=== PATIENT | female | born 1985 | race African-American/Black ===

== ENCOUNTER 2018-05-07 10:01 | Emergency (ER) | payer OTHER, MEDICAID, SELFPAY ==
[2018-05-07 10:14] VITALS: BP 135/88; PULSE 114; RESP 20; TEMP 37.4; O2SAT 100
[2018-05-07 11:15] VITALS: BP 135/90; PULSE 116; RESP 18; TEMP 38.6; O2SAT 100
--- NOTE | 2018-05-07 16:22 | ED_ITS ---
HPI - Fever General Chief Complaint: Fever Stated Complaint: FEVER 102, NECK SWOLLEN, HURTS Time Seen by Provider: 05/07/18 10:20 Source: patient and family Mode of arrival: ambulatory Limitations: no limitations History of Present Illness HPI Narrative: 32-year-old female nonsmoker presents to the emergency department with a chief complaint sore throat and fever as high as 102 for the past day. She has trouble swallowing and denies many of the other symptoms associated with upper respiratory infection such as runny nose, ear pain or cough. MD complaint: fever Onset (ago): hour(s) Maximum Temperature: 102.6 F Temperature Source: oral Associated symptoms: sore throat Relieving factors: nothing Exacerbating factors: nothing Treatments prior to arrival fever: none Related Data Previous Rx's Medication Instructions Recorded amoxicillin-pot clavulanate 1 tab PO BID #20 tab 05/07/18 [Augmentin] Allergies Allergy/AdvReac Type Severity Reaction Status Date / Time No Known Drug Allergies Allergy Verified 05/07/18 10:14 Review of Systems Review of Systems All systems reviewed & are unremarkable except as noted in HPI and below Constitutional Denies chills, Denies fever(s), Denies lethargy and Denies weakness Eyes Denies change in vision, Denies eye discharge, Denies irritation and Denies loss of vision ENT Ears, Nose, Mouth, and Throat: Denies change in voice, Denies neck pain and Reports sore throat Cardiovascular Denies chest pain, Denies irregular heart rhythm, Denies lightheadedness, Denies palpitations, Denies dyspnea, Denies dyspnea on exertion and Denies orthopnea Respiratory Denies cough, Denies dyspnea, Denies dyspnea on exertion and Denies wheezing Gastrointestinal Gastrointestinal: Denies abdominal pain, Denies change in bowel habits, Denies diarrhea, Denies nausea and Denies vomiting Genitourinary Denies hematuria, Denies flank pain, Denies urinary incontinence and Denies urinary urgency Musculoskeletal Denies neck pain Integumentary/Breasts Denies pruritus, Denies erythema, Denies rash and Denies wounds Neurologic Denies confusion, Denies loss of vision and Denies weakness Psychiatric Denies anxiety, Denies confusion, Denies depression, Denies homicidal ideation and Denies suicidal ideation Endocrine Denies palpitations Hematologic/Lymphatic Denies easy bruising Allergic/Immunologic Denies wheezing [facility] Medical History Knee pain, right (Chronic Unknown) Social History Smoking Status: Never smoker Exam Narrative Exam Narrative: GEN: AOx3 and in mild distress EYES: Pupils are equal, round, and reactive to light and accommodation. Extraoccular muscles are intact bilaterally. There is no subconjunctival hemorrhage or exudate. CHEST: Lungs are clear to auscultation bilaterally and free of wheezes, rales, or rhonchi. Heart rate is regular rhythm, there are no murmurs, clicks, rubs, or gallops. There is no chest wall tenderness. ABD: Abdomen is soft and nontender. There is no guarding or rebound. Bowel sounds are normal in all 4 quadrants. There is no mass or organomegaly. ENT: Left tonsillar swelling, erythema and exudate. Tender anterior lymphadenopathy EXT: Full painless ROM of all extremities with no loss of sensation or strength. SKIN: Warm, pink, and dry. No erythema or rash Initial Vital Signs Initial Vital Signs: Vital Signs Temperature 99.3 F 05/07/18 10:14 Pulse Rate 114 H 05/07/18 10:14 Respiratory Rate 20 05/07/18 10:14 Blood Pressure 135/88 05/07/18 10:14 Pulse Oximetry 100 05/07/18 10:14 Course Vital Signs - 8 hr 05/07/18 10:14 05/07/18 11:15 Temperature 99.3 F 101.4 F H Pulse Rate 114 H 116 H Respiratory Rate 20 18 Blood Pressure 135/88 Blood Pressure [Left Arm] 135/90 Pulse Oximetry 100 100 MDM - Fever Lab Data Point of Care Testing Rapid Strep A Negative Discharge Plan Departure Patient Disposition: Home Clinical Impression: Acute streptococcal pharyngitis Discharge Date/Time: 05/07/18 11:21 Interventions: ED Discharge Assessment Last Done: 05/07/18 11:20 Instructions: DI for Strep Throat Activity Restrictions/Additional Instructions: *You have been diagnosed with [ acute streptococcal pharyngitis ] *What to do: *Take medications as directed: Her antibiotics of an electronically transmitted to [facility] in [place] at your request *Follow up with your primary care provider in 2-3 days, call for an appointment. Let them know you were seen in the Emergency Department and that we ask that you be seen in follow up *Return to ER if you should have any new, worsening or concerning symptoms Prescriptions: New amoxicillin-pot clavulanate [Augmentin] 875-125 mg tablet 1 tab PO BID Qty: 20 RF: 0 Stand Alone Forms: Work/School Restrictions
== END 2018-05-07 11:21 | disposition home or self-care (01) ==
PROVIDERS: Emergency Provider Emergency Medicine
DX: J02.0 Streptococcal pharyngitis (principal)
CPT/HCPCS: 87880; 99282; 99283

== ENCOUNTER 2018-07-08 16:00 | Outpatient (RCR) | payer OTHER, MEDICAID, SELFPAY ==
--- NOTE | 2018-03-16 15:15 | PT.OTN ---
Current Diagnoses Unspecified internal derangement of right knee (03/16/18) Effusion, right knee (03/16/18) Pain in right knee (03/16/18) Stiffness of right knee, not elsewhere classified (03/16/18) Weakness (03/16/18) Physical Therapy Treatment Note PT-OP-A Visit Information Start: 02/26/18 09:27 Freq: Status: Active Protocol: Document 03/16/18 15:15 DCW (Rec: 03/17/18 12:37 DCW [id number]) Out-Patient Physical Therapy Visit Information Visit Information Visit Type Progress Note Visit Start Time 15:15 Visit Stop Time 15:55 Total Visit Minutes 40 Visit Number 11 Number of MEDIA ARTS PROFESSOR Visits 0 Evaluation Information Evaluation Date 08/11/17 PT-OP-B Current Condition Start: 02/26/18 09:27 Freq: Status: Active Protocol: Document 03/16/18 15:15 DCW (Rec: 03/17/18 12:37 DCW [id number]) Current Condition History of Current Condition Onset Date one year Current Complaints Knee pain, instability, loss of ROM, weakness History of Current Condition Pt is a 31 year old female presenting with a one year history of right knee pain. Pt was previously treated at this clinic earlier in the year, and was on hold while she had other testing/ procedures performed. last month, she received an injection in her knee, and was told to return to therapy in one month for ROM and strengthening. Pt reports her knee feels alright sometimes, and notes she has been walking better since her injection, however she continues to have difficulty bending down, she is unable to run with her children, and experiences stiffness and swelling occasionally when on her feet at her job as a [employer]. Pt notes that they initially believed she had a meniscal tear, and plan to do surgery, however after an x-ray revealed substantial degeneration of the joint space, they wanted to attempt injection and therapy prior to surgery. 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 trail again. Prior Functional Status Baseline Function- ADL's Independent Baseline Function- Mobility Independent Current Functional Impairments (Reported) Functional Limitations- Work/School Increased stiffness and edema with being on her feet for extended periods at work, but nothing stops me from actually going to work. PT-OP-C Subjective Start: 02/26/18 09:27 Freq: Status: Active Protocol: Document 03/16/18 15:15 DCW (Rec: 03/17/18 12:37 DCW [id number]) OP-PT Subjective Patient Comments Patient Comments It feels alright sometimes since the injection Patient Reported Progress Improving PT-OP-F Manual Assessment Start: 02/26/18 09:27 Freq: Status: Active Protocol: Document 03/16/18 15:15 DCW (Rec: 03/17/18 12:37 DCW [id number]) Manual Assessments Soft Tissue Assessment Soft Tissue Mobility Assessment Edema around right patella tendon, tenderness 2/4 - Pain with wincing along lateral joint line Joint Mobility Assessment Joint Mobility Assessment Mild laxity with right anterior drawer, significant increased mobility of patella in all directions, moderate-> severe crepitus at patellofemoral joint with any knee extension PT-OP-K Range of Motion Start: 02/26/18 09:27 Freq: Status: Active Protocol: Document 03/16/18 15:15 DCW (Rec: 03/17/18 12:37 DCW [id number]) Knee Goniometric Range of Motion Knee Measured in Degrees Right Knee ROM WFL No Patient Position Supine Flexion Active (degrees) 116 Flexion Passive (degrees) 0 Left Knee ROM WFL Yes Patient Position Supine Flexion Active (degrees) 135 Flexion Passive (degrees) 0 Knee ROM Limitations Knee ROM Limitations Soft Tissue Tightness Bony Restriction Pain PT-OP-L Special Tests Start: 02/26/18 09:27 Freq: Status: Active Protocol: Document 03/16/18 15:15 DCW (Rec: 03/17/18 12:37 DCW [id number]) Special Tests Knee Special Tests Posterior Draw Test Results Negative Patellar Grind Test Test Results Positive Patella Tap Test Results Positive Murphy Test Test Results 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 Results Patella pain in all positions Apprehension Test Test Results Positive Apley's Compression Test Results Positive Anterior Draw Test Results Mild laxity PT-OP-M Strength Start: 02/26/18 09:27 Freq: Status: Active Protocol: Document 03/16/18 15:15 DCW (Rec: 03/17/18 12:37 [facility] [id number]) Knee Strength Knee Manual Muscle Testing Right Flexion (S2) 4+ Good+ Extension (L3) 4- Good- Comments Pain and crepitus with resisted right extension Left Flexion (S2) 5 Normal Extension (L3) 5 Normal PT-OP-Q Treatments Start: 02/26/18 09:27 Freq: Status: Active Protocol: Document 03/16/18 15:15 DCW (Rec: 03/17/18 12:37 [facility] [id number]) Manual Therapy Treatment Taping 1 Body Location Right knee Treatment Focus Stability/Support Type of Tape Kinesio Tape Skin Inspection WNL Comments Y strip lateral->medial across patella, Y-strip along vastus medialis origin->insertion PT-OP-T Assessment and Plan Start: 02/26/18 09:27 Freq: Status: Active Protocol: Document 03/16/18 15:15 DCW (Rec: 03/17/18 12:37 [facility] [id number]) Physical Therapy Assessment Rehab Potential Rehabilitation Potential Fair Evaluation Complexity Number of Personal Factors/Comorbidities 1-2 Number of Body Systems Impaired 3 Clinical Presentation at Evaluation Evolving Impairments Impairments Activity Tolerance Functional Activities Functional Mobility Pain ROM Soft Tissue Mobility Strength Other Concerns Barriers to Rehabilitation Chronicity of condition, likely upcoming surgical intervention Goals Four Impairment Weakness Short Term Goal (STG) Right knee extension to 4+/5 STG Duration 04/15/18 Three Impairment ROM Short Term Goal (STG) Right knee flexion to 125? STG Duration 04/15/18 Detention Goal (LTG) Right knee flexion equal to left knee flexion Two Impairment Pt unable to run with children on [employer] House Admin Goal (LTG) Pt to run/walk length of [employer] with her children with no increased knee pain LTG Duration 05/16/18 One Impairment Pt does not have an appropriate Home exercise program Short Term Goal (STG) Pt to be independent and consistent performing appropriate HEP STG Duration 04/15/18 Assessment Summary Assessment Pt presents with a right knee assessment suggestive of a possible meniscus tear, along with mild anterior joint laxity and significant laxity of the patella. Pt should benefit from skilled therapy focusing on quad strengthening and closed chain exercises, joint stability, ROM, edema control, and pain control. Physical Therapy Plan Frequency and Duration Frequency of Treatment 2x/Week Duration of Treatment 12 weeks Plan of Care Start Date 03/16/18 Plan of Care End Date 06/08/18 Therapeutic Interventions Therapeutic Interventions Aquatic Therapy Balance Training Home Exercise Program Manual Therapy Neuromuscular Re-education Patient/Caregiver Education Self-Care/Home Management Soft Tissue Mobilization Taping Therapeutic Activities Therapeutic Exercises Modalities Cold Pack/Ice Massage Electric Stimulation Hot Packs Ultrasound Next Visit Focus/Plan Next Note Type Treatment Note Next Visit Plan LE strengthening, joint stability, ROM
--- NOTE | 2018-03-16 15:15 | PT.OPPOC ---
Current Diagnoses Unspecified internal derangement of right knee (03/16/18) Effusion, right knee (03/16/18) Pain in right knee (03/16/18) Stiffness of right knee, not elsewhere classified (03/16/18) Weakness (03/16/18) Provider Visit Care Team Role Provider Type Vu Hernández MD Attending Provider Physician Family Provider Primary Care Provider Specialty: Orthopedics Address: [address] [place] [address], [place], [address] Email: [email or web address] Plan Of Care PT-OP-T Assessment and Plan Start: 02/26/18 09:27 Freq: Status: Active Protocol: Document 03/16/18 15:15 DCW (Rec: 03/17/18 12:37 DCW [id number]) Physical Therapy Assessment Rehab Potential Rehabilitation Potential Fair Evaluation Complexity Number of Personal Factors/Comorbidities 1-2 Number of Body Systems Impaired 3 Clinical Presentation at Evaluation Evolving Impairments Impairments Activity Tolerance Functional Activities Functional Mobility Pain ROM Soft Tissue Mobility Strength Other Concerns Barriers to Rehabilitation Chronicity of condition, likely upcoming surgical intervention Goals Four Impairment Weakness Short Term Goal (STG) Right knee extension to 4+/5 STG Duration 04/15/18 Three Impairment ROM Short Term Goal (STG) Right knee flexion to 125? STG Duration 04/15/18 Placement Assistant Goal (LTG) Right knee flexion equal to left knee flexion Two Impairment Pt unable to run with children on [employer] Longterm Goal (LTG) Pt to run/walk length of [employer] trail with her children with no increased knee pain LTG Duration 05/16/18 One Impairment Pt does not have an appropriate Home exericse program Short Term Goal (STG) Pt to be independent and consistent performing appropriate HEP STG Duration 04/15/18 Assessment Summary Assessment Pt presents with a right knee assessment suggestive of a possible meniscus tear, along with mild anterior joint laxity and significant laxity of the patella. Pt should benefit from skilled therapy focusing on quad strengthening and closed chain exercises, joint stability, ROM, edema control, and pain control. Physical Therapy Plan Frequency and Duration Frequency of Treatment 2x/Week Duration of Treatment 12 weeks Plan of Care Start Date 03/16/18 Plan of Care End Date 06/08/18 Therapeutic Interventions Therapeutic Interventions Aquatic Therapy Balance Training Home Exercise Program Manual Therapy Neuromuscular Re-education Patient/Caregiver Education Self-Care/Home Management Soft Tissue Mobilization Taping Therapeutic Activities Therapeutic Exercises Modalities Cold Pack/Ice Massage Electric Stimulation Hot Packs Ultrasound Next Visit Focus/Plan Next Note Type Treatment Note Next Visit Plan LE strengthening, joint stability, ROM Plan of Care Dates Plan of Care Start Date 03/16/18 Plan of Care End Date 06/08/18 Please Sign and Return: I have reviewed this Plan of Care and certify that the skilled therapy services above are required to meet the patient?s needs. Physician Signature Date Printed Name and Credentials Clinical Instructor Signature Printed Name and Credentials
--- NOTE | 2018-03-25 16:45 | PT.OTN ---
Current Diagnoses Unspecified internal derangement of right knee (03/25/18) Physical Therapy Treatment Note PT-OP-A Visit Information Start: 02/26/18 09:27 Freq: Status: Active Protocol: Document 03/25/18 16:00 DCW (Rec: 03/25/18 16:45 DCW [id number]) Out-Patient Physical Therapy Visit Information Visit Information Visit Type Treatment Note Visit Start Time 16:00 Visit Stop Time 16:55 Total Visit Minutes 55 Visit Number 12 Number of INSPECTOR GOVERNMENT PROPERTY Visits 0 Evaluation Information Evaluation Date 08/11/17 PT-OP-B Current Condition Start: 02/26/18 09:27 Freq: Status: Active Protocol: Document 03/16/18 15:15 DCW (Rec: 03/17/18 12:37 DCW [id number]) Current Condition History of Current Condition Onset Date one year Current Complaints Knee pain, instability, loss of ROM, weakness History of Current Condition Pt is a 31 year old female presenting with a one year history of right knee pain. Pt was previously treated at this clinic earlier in the year, and was on hold while she had other testing/ procedures performed. last month, she received an injection in her knee, and was told to return to therapy in one month for ROM and strengthening. Pt reports her knee feels alright sometimes, and notes she has been walking better since her injection, however she continues to have difficulty bending down, she is unable to run with her children, and experiences stiffness and swelling occasionally when on her feet at her job as a [employer]. Pt notes that they initially believed she had a meniscal tear, and plan to do surgery, however after an x-ray revealed substantial degeneration of the joint space, they wanted to attempt injection and therapy prior to surgery. 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 Prior Functional Status Baseline Function- ADL's Independent Baseline Function- Mobility Independent Current Functional Impairments (Reported) Functional Limitations- Work/School Increased stiffness and edema with being on her feet for extended periods at work, but nothing stops me from actually going to work. PT-OP-C Subjective Start: 02/26/18 09:27 Freq: Status: Active Protocol: Document 03/25/18 16:00 DCW (Rec: 03/25/18 16:45 DCW [id number]) OP-PT Subjective Patient Comments Patient Comments Pt reports that she still not seeing a whole lot of improvement since the injection. PT-OP-F Manual Assessment Start: 02/26/18 09:27 Freq: Status: Active Protocol: Document 03/16/18 15:15 DCW (Rec: 03/17/18 12:37 DCW [id number]) Manual Assessments Soft Tissue Assessment Soft Tissue Mobility Assessment Edema around right patella tendon, tenderness 2/4 - Pain with wincing along lateral joint line Joint Mobility Assessment Joint Mobility Assessment Mild laxity with right anterior drawer, significant increased mobility of patella in all directions, moderate-> severe crepitus at patellofemoral joint with any knee extension PT-OP-K Range of Motion Start: 02/26/18 09:27 Freq: Status: Active Protocol: Document 03/16/18 15:15 DCW (Rec: 03/17/18 12:37 DCW [id number]) Knee Goniometric Range of Motion Knee Measured in Degrees Right Knee ROM WFL No Patient Position Supine Flexion Active (degrees) 116 Flexion Passive (degrees) 0 Left Knee ROM WFL Yes Patient Position Supine Flexion Active (degrees) 135 Flexion Passive (degrees) 0 Knee ROM Limitations Knee ROM Limitations Soft Tissue Tightness Bony Restriction Pain PT-OP-L Special Tests Start: 02/26/18 09:27 Freq: Status: Active Protocol: Document 03/16/18 15:15 DCW (Rec: 03/17/18 12:37 DCW [id number]) Special Tests Knee Special Tests Posterior Draw Test Results Negative Patellar Grind Test Test Results Positive Patella Tap Test Results Positive Murphy Test Test Results 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 Results Patella pain in all positions Apprehension Test Test Results Positive Apley's Compression Test Results Positive Anterior Draw Test Results Mild laxity PT-OP-M Strength Start: 02/26/18 09:27 Freq: Status: Active Protocol: Document 03/16/18 15:15 DCW (Rec: 03/17/18 12:37 DCW [id number]) Knee Strength Knee Manual Muscle Testing Right Flexion (S2) 4+ Good+ Extension (L3) 4- Good- Comments Pain and crepitus with resisted right extension Left Flexion (S2) 5 Normal Extension (L3) 5 Normal PT-OP-Q Treatments Start: 02/26/18 09:27 Freq: Status: Active Protocol: Document 03/25/18 16:00 DCW (Rec: 03/25/18 16:45 DCW [id number]) Cardio Equipment Recumbent Bicycle Duration (Minutes) 6 Resistance 5 Seat Position 7 Gym Equipment Shuttle Recovery Unilateral Squats Resistance 62# Shuttle Recovery Platform Stable Bilateral Squats Details Adductor ball squeeze Resistance 100# Shuttle Recovery Platform Stable Shuttle Balance Red Details Wide RICKI, Staggered Stance, Lateral weight shift Manual Therapy Treatment Joint Mobilizations 1 Joint Tibiofemoral joint mobilization Direction P->A Grade III Body Position Hooklying Taping 1 Body Location Right knee Treatment Focus Stability/Support Type of Tape Kinesio Tape Skin Inspection WNL Comments Y strip lateral->medial across patella, Y-strip along vastus medialis origin->insertion PT-OP-R Modalities Start: 02/26/18 09:27 Freq: Status: Active Protocol: Document 03/25/18 16:00 DCW (Rec: 03/25/18 16:45 DCW [id number]) Electric Stimulation Electric Stimulation Interferential Current (IFC) Body Location Right knee Duration (Minutes) 15 Patient Position Hooklying Combined With Heat/Cold Cold Pack PT-OP-T Assessment and Plan Start: 02/26/18 09:27 Freq: Status: Active Protocol: Document 03/25/18 16:00 DCW (Rec: 03/25/18 16:45 DCW [id number]) Physical Therapy Assessment Impairments Impairments Activity Tolerance Functional Activities Functional Mobility Pain ROM Soft Tissue Mobility Strength Goals Four Impairment Weakness Short Term Goal (STG) Right knee extension to 4+/5 STG Duration 04/15/18 Three Impairment ROM Short Term Goal (STG) Right knee flexion to 125? STG Duration 04/15/18 Mcfp Goal (LTG) Right knee flexion equal to left knee flexion Two Impairment Pt unable [place] [employer] [employer] Goal (LTG) Pt to run/walk [place] with her children with no increased knee pain LTG Duration 05/16/18 One Impairment Pt does not have an appropriate Home exericse program Short Term Goal (STG) Pt to be independent and consistent performing appropriate HEP STG Duration 04/15/18 Assessment Summary Assessment Pt noted improvement with use of K-tape, will assess effectiveness of E-stim next week. Continue closed-chain strengthening and joint mobility. Physical Therapy Plan Frequency and Duration Frequency of Treatment 2x/Week Duration of Treatment 12 weeks Plan of Care Start Date 03/16/18 Plan of Care End Date 06/08/18 Therapeutic Interventions Therapeutic Interventions Aquatic Therapy Balance Training Home Exercise Program Manual Therapy Neuromuscular Re-education Patient/Caregiver Education Self-Care/Home Management Soft Tissue Mobilization Taping Therapeutic Activities Therapeutic Exercises Modalities Cold Pack/Ice Massage Electric Stimulation Hot Packs Ultrasound Next Visit Focus/Plan Next Note Type Treatment Note Next Visit Plan LE strengthening, joint stability, ROM
--- NOTE | 2018-04-01 15:58 | PT.OTN ---
Current Diagnoses Unspecified internal derangement of right knee (04/01/18) Physical Therapy Treatment Note PT-OP-A Visit Information Start: 02/26/18 09:27 Freq: Status: Active Protocol: Document 04/01/18 15:15 DCW (Rec: 04/01/18 15:58 DCW [id number]) Out-Patient Physical Therapy Visit Information Visit Information Visit Type Treatment Note Visit Start Time 15:15 Visit Stop Time 16:10 Total Visit Minutes 55 Visit Number 13 Number of CANARY BREEDER Visits 0 Evaluation Information Evaluation Date 08/11/17 PT-OP-B Current Condition Start: 02/26/18 09:27 Freq: Status: Active Protocol: Document 03/16/18 15:15 DCW (Rec: 03/17/18 12:37 DCW [id number]) Current Condition History of Current Condition Onset Date one year Current Complaints Knee pain, instability, loss of ROM, weakness History of Current Condition Pt is a 31 year old female presenting with a one year history of right knee pain. Pt was previously treated at this clinic earlier in the year, and was on hold while she had other testing/ procedures performed. last month, she received an injection in her knee, and was told to return to therapy in one month for ROM and strengthening. 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 Pt notes that they initially believed she had a meniscal tear, and plan to do surgery, however after an x-ray revealed substantial degeneration of the joint space, they wanted to attempt injection and therapy prior to surgery. 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 Prior Functional Status Baseline Function- ADL's Independent Baseline Function- Mobility Independent Current Functional Impairments (Reported) Functional Limitations- Work/School Increased stiffness and edema with being on her feet for extended periods at work, but nothing stops me from actually going to work. PT-OP-C Subjective Start: 02/26/18 09:27 Freq: Status: Active Protocol: Document 04/01/18 15:15 DCW (Rec: 04/01/18 15:58 DCW [id number]) OP-PT Subjective Patient Comments Patient Comments Pt reports no notable changes, admits she attempted to wear her brace yesterday, but it actually made walking more difficult. PT-OP-F Manual Assessment Start: 02/26/18 09:27 Freq: Status: Active Protocol: Document 03/16/18 15:15 DCW (Rec: 03/17/18 12:37 DCW [id number]) Manual Assessments Soft Tissue Assessment Soft Tissue Mobility Assessment Edema around right patella tendon, tenderness 2/4 - Pain with wincing along lateral joint line Joint Mobility Assessment Joint Mobility Assessment Mild laxity with right anterior drawer, significant increased mobility of patella in all directions, moderate-> severe crepitus at patellofemoral joint with any knee extension PT-OP-K Range of Motion Start: 02/26/18 09:27 Freq: Status: Active Protocol: Document 03/16/18 15:15 DCW (Rec: 03/17/18 12:37 DCW [id number]) Knee Goniometric Range of Motion Knee Measured in Degrees Right Knee ROM WFL No Patient Position Supine Flexion Active (degrees) 116 Flexion Passive (degrees) 0 Left Knee ROM WFL Yes Patient Position Supine Flexion Active (degrees) 135 Flexion Passive (degrees) 0 Knee ROM Limitations Knee ROM Limitations Soft Tissue Tightness Bony Restriction Pain PT-OP-L Special Tests Start: 02/26/18 09:27 Freq: Status: Active Protocol: Document 03/16/18 15:15 DCW (Rec: 03/17/18 12:37 DCW [id number]) Special Tests Knee Special Tests Posterior Draw Test Results Negative Patellar Grind Test Test Results Positive Patella Tap Test Results Positive Murphy Test Test Results 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 Results Patella pain in all positions Apprehension Test Test Results Positive Apley's Compression Test Results Positive Anterior Draw Test Results Mild laxity PT-OP-M Strength Start: 02/26/18 09:27 Freq: Status: Active Protocol: Document 03/16/18 15:15 DCW (Rec: 03/17/18 12:37 DCW [id number]) Knee Strength Knee Manual Muscle Testing Right Flexion (S2) 4+ Good+ Extension (L3) 4- Good- Comments Pain and crepitus with resisted right extension Left Flexion (S2) 5 Normal Extension (L3) 5 Normal PT-OP-Q Treatments Start: 02/26/18 09:27 Freq: Status: Active Protocol: Document 04/01/18 15:15 DCW (Rec: 04/01/18 15:58 DCW [id number]) Cardio Equipment Recumbent Bicycle Duration (Minutes) 6 Resistance 5 Seat Position 7 Gym Equipment Shuttle Recovery Plyometric Hopping Resistance 50# -> 25# Unilateral Squats Resistance 62# Shuttle Recovery Platform Stable Bilateral Squats Details Adductor ball squeeze Resistance 100# Shuttle Recovery Platform Stable Shuttle Balance Red Details Wide RICKI, Staggered Stance, Lateral weight shift Manual Therapy Treatment Joint Mobilizations 2 Joint Patellofemoral joint mobilization Direction Superior<->Inferior Grade III Body Position Supine 1 Joint Tibiofemoral joint mobilization Direction P->A Grade III Body Position Hooklying Taping 1 Body Location Right knee Treatment Focus Stability/Support Type of Tape Kinesio Tape Skin Inspection WNL Comments Y strip lateral->medial across patella, Y-strip along vastus medialis origin->insertion PT-OP-R Modalities Start: 02/26/18 09:27 Freq: Status: Active Protocol: Document 04/01/18 15:15 DCW (Rec: 04/01/18 15:58 DCW [id number]) Electric Stimulation Electric Stimulation Interferential Current (IFC) Body Location Right knee Duration (Minutes) 15 Patient Position Hooklying Combined With Heat/Cold Cold Pack PT-OP-T Assessment and Plan Start: 02/26/18 09:27 Freq: Status: Active Protocol: Document 04/01/18 15:15 DCW (Rec: 04/01/18 15:58 DCW [id number]) Physical Therapy Assessment Impairments Impairments Activity Tolerance Functional Activities Functional Mobility Pain ROM Soft Tissue Mobility Strength Goals Four Impairment Weakness Short Term Goal (STG) Right knee extension to 4+/5 STG Duration 04/15/18 Three Impairment ROM Short Term Goal (STG) Right knee flexion to 125? STG Duration 04/15/18 Shelter Goal (LTG) Right knee flexion equal to left knee flexion Two Impairment Pt unable to run with children on [place] Senior Lead Project Manager Goal (LTG) Pt to run/walk [place] with [place] with no increased knee pain LTG Duration 05/16/18 One Impairment Pt does not have an appropriate Home exericse program Short Term Goal (STG) Pt to be independent and consistent performing appropriate HEP STG Duration 04/15/18 Assessment Summary Assessment Pt does not yet display any signs of improvement, focus more on manual treatment to determine if increased mobility decreases her pain. Physical Therapy Plan Frequency and Duration Frequency of Treatment 2x/Week Duration of Treatment 12 weeks Plan of Care Start Date 03/16/18 Plan of Care End Date 06/08/18 Therapeutic Interventions Therapeutic Interventions Aquatic Therapy Balance Training Home Exercise Program Manual Therapy Neuromuscular Re-education Patient/Caregiver Education Self-Care/Home Management Soft Tissue Mobilization Taping Therapeutic Activities Therapeutic Exercises Modalities Cold Pack/Ice Massage Electric Stimulation Hot Packs Ultrasound Next Visit Focus/Plan Next Note Type Treatment Note Next Visit Plan LE strengthening, joint stability, ROM
--- NOTE | 2018-04-03 11:25 | PT.OTN ---
Current Diagnoses Unspecified internal derangement of right knee (04/03/18) Physical Therapy Treatment Note PT-OP-A Visit Information Start: 02/26/18 09:27 Freq: Status: Active Protocol: Document 04/03/18 10:40 LRN (Rec: 04/03/18 11:21 LRN [id number]) Out-Patient Physical Therapy Visit Information Visit Information Visit Type Treatment Note Visit Start Time 10:40 Visit Stop Time 11:35 Total Visit Minutes 55 Visit Number 14 Number of STEAM PLANT RECORDS CLERK Visits 0 Evaluation Information Evaluation Date 08/11/17 PT-OP-B Current Condition Start: 02/26/18 09:27 Freq: Status: Active Protocol: Document 03/16/18 15:15 DCW (Rec: 03/17/18 12:37 DCW [id number]) Current Condition History of Current Condition Onset Date one year Current Complaints Knee pain, instability, loss of ROM, weakness History of Current Condition Pt is a 31 year old female presenting with a one year history of right knee pain. Pt was previously treated at this clinic earlier in the year, and was on hold while she had other testing/ procedures performed. last month, she received an injection in her knee, and was told to return to therapy in one month for ROM and strengthening. 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 Pt notes that they initially believed she had a meniscal tear, and plan to do surgery, however after an x-ray revealed substantial degeneration of the joint space, they wanted to attempt injection and therapy prior to surgery. 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 Prior Functional Status Baseline Function- ADL's Independent Baseline Function- Mobility Independent Current Functional Impairments (Reported) Functional Limitations- Work/School Increased stiffness and edema with being on her feet for extended periods at work, but nothing stops me from actually going to work. PT-OP-C Subjective Start: 02/26/18 09:27 Freq: Status: Active Protocol: Document 04/03/18 10:40 LRN (Rec: 04/03/18 11:21 LRN [id number]) OP-PT Subjective Patient Comments Patient Comments No change except walking better after injection. When bending the knee it hurts really bad PT-OP-F Manual Assessment Start: 02/26/18 09:27 Freq: Status: Active Protocol: Document 03/16/18 15:15 DCW (Rec: 03/17/18 12:37 DCW [id number]) Manual Assessments Soft Tissue Assessment Soft Tissue Mobility Assessment Edema around right patella tendon, tenderness 2/4 - Pain with wincing along lateral joint line Joint Mobility Assessment Joint Mobility Assessment Mild laxity with right anterior drawer, significant increased mobility of patella in all directions, moderate-> severe crepitus at patellofemoral joint with any knee extension PT-OP-K Range of Motion Start: 02/26/18 09:27 Freq: Status: Active Protocol: Document 03/16/18 15:15 DCW (Rec: 03/17/18 12:37 DCW [id number]) Knee Goniometric Range of Motion Knee Measured in Degrees Right Knee ROM WFL No Patient Position Supine Flexion Active (degrees) 116 Flexion Passive (degrees) 0 Left Knee ROM WFL Yes Patient Position Supine Flexion Active (degrees) 135 Flexion Passive (degrees) 0 Knee ROM Limitations Knee ROM Limitations Soft Tissue Tightness Bony Restriction Pain PT-OP-L Special Tests Start: 02/26/18 09:27 Freq: Status: Active Protocol: Document 03/16/18 15:15 DCW (Rec: 03/17/18 12:37 DCW [id number]) Special Tests Knee Special Tests Posterior Draw Test Results Negative Patellar Grind Test Test Results Positive Patella Tap Test Results Positive Murphy Test Test Results 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 Results Patella pain in all positions Apprehension Test Test Results Positive Apley's Compression Test Results Positive Anterior Draw Test Results Mild laxity PT-OP-M Strength Start: 02/26/18 09:27 Freq: Status: Active Protocol: Document 03/16/18 15:15 DCW (Rec: 03/17/18 12:37 DCW [id number]) Knee Strength Knee Manual Muscle Testing Right Flexion (S2) 4+ Good+ Extension (L3) 4- Good- Comments Pain and crepitus with resisted right extension Left Flexion (S2) 5 Normal Extension (L3) 5 Normal PT-OP-Q Treatments Start: 02/26/18 09:27 Freq: Status: Active Protocol: Document 04/03/18 10:40 LRN (Rec: 04/03/18 11:21 LRN [id number]) Cardio Equipment Bicycle (Upright) Duration (Minutes) 6 Resistance 3 Seat Position 7 Gym Equipment Shuttle Recovery Plyometric Hopping Resistance 50# -> 25# Unilateral Squats Details Shallow squat Resistance 62# Shuttle Recovery Platform Stable Bilateral Squats Details Adductor ball squeeze, shallow squat Resistance 100# Shuttle Recovery Platform Stable Manual Therapy Treatment Joint Mobilizations 2 Joint Patellofemoral joint mobilization Direction Superior<->Inferior Grade III Body Position Supine Taping 1 Body Location Right knee Treatment Focus Stability/Support Type of Tape Kinesio Tape Skin Inspection WNL Comments Y strip lateral->medial across patella, Y-strip along vastus medialis origin->insertion PT-OP-R Modalities Start: 02/26/18 09:27 Freq: Status: Active Protocol: Document 04/03/18 10:40 LRN (Rec: 04/03/18 11:21 LRN [id number]) Electric Stimulation Electric Stimulation Interferential Current (IFC) Body Location Right knee Duration (Minutes) 15 Intensity 11 Patient Position Hooklying Combined With Heat/Cold Cold Pack Hot Pack/Cold Pack Treatment Cold Pack Location R knee Patient Position Supine Treatment Duration (minutes) 15 Patient Tolerance Good Comments Performed with E-Stom PT-OP-T Assessment and Plan Start: 02/26/18 09:27 Freq: Status: Active Protocol: Document 04/03/18 10:40 LRN (Rec: 04/03/18 11:21 LRN [id number]) Physical Therapy Assessment Impairments Impairments Activity Tolerance Functional Activities Functional Mobility Pain ROM Soft Tissue Mobility Strength Goals Four Impairment Weakness Short Term Goal (STG) Right knee extension to 4+/5 STG Duration 04/15/18 Three Impairment ROM Short Term Goal (STG) Right knee flexion to 125? STG Duration 04/15/18 Longterm Goal (LTG) Right knee flexion equal to left knee flexion Two Impairment Pt unable to run with children on [place] Mobility Architect Manager Goal (LTG) Pt to run/walk [place] with her children with no increased knee pain LTG Duration 05/16/18 One Impairment Pt does not have an appropriate Home exericse program Short Term Goal (STG) Pt to be independent and consistent performing appropriate HEP STG Duration 04/15/18 Assessment Summary Assessment K-tape helpful, came off this morning. Increased patella mobility. Pain appears primarily with excessive bending, stairs, and can't run . Physical Therapy Plan Frequency and Duration Frequency of Treatment 2x/Week Duration of Treatment 12 weeks Plan of Care Start Date 03/16/18 Plan of Care End Date 06/08/18 Therapeutic Interventions Therapeutic Interventions Aquatic Therapy Balance Training Home Exercise Program Manual Therapy Neuromuscular Re-education Patient/Caregiver Education Self-Care/Home Management Soft Tissue Mobilization Taping Therapeutic Activities Therapeutic Exercises Modalities Cold Pack/Ice Massage Electric Stimulation Hot Packs Ultrasound Next Visit Focus/Plan Next Note Type Treatment Note Next Visit Plan LE strengthening, joint stability, ROM
--- NOTE | 2018-04-06 15:57 | PT.OTN ---
Current Diagnoses Unspecified internal derangement of right knee (04/06/18) Physical Therapy Treatment Note PT-OP-A Visit Information Start: 02/26/18 09:27 Freq: Status: Active Protocol: Document 04/06/18 15:20 DCW (Rec: 04/06/18 15:57 DCW [id number]) Out-Patient Physical Therapy Visit Information Visit Information Visit Type Treatment Note Visit Note 5 minutes late Visit Start Time 15:20 Visit Stop Time 16:10 Total Visit Minutes 50 Visit Number 15 Number of REPAIRER FINISHED METAL Visits 0 Evaluation Information Evaluation Date 08/11/17 PT-OP-B Current Condition Start: 02/26/18 09:27 Freq: Status: Active Protocol: Document 03/16/18 15:15 DCW (Rec: 03/17/18 12:37 DCW [id number]) Current Condition History of Current Condition Onset Date one year Current Complaints Knee pain, instability, loss of ROM, weakness History of Current Condition Pt is a 31 year old female presenting with a one year history of right knee pain. Pt was previously treated at this clinic earlier in the year, and was on hold while she had other testing/ procedures performed. last month, she received an injection in her knee, and was told to return to therapy in one month for ROM and strengthening. 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 Pt notes that they initially believed she had a meniscal tear, and plan to do surgery, however after an x-ray revealed substantial degeneration of the joint space, they wanted to attempt injection and therapy prior to surgery. 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 Prior Functional Status Baseline Function- ADL's Independent Baseline Function- Mobility Independent Current Functional Impairments (Reported) Functional Limitations- Work/School Increased stiffness and edema with being on her feet for extended periods at work, but nothing stops me from actually going to work. PT-OP-C Subjective Start: 02/26/18 09:27 Freq: Status: Active Protocol: Document 04/06/18 15:20 DCW (Rec: 04/06/18 15:57 DCW [id number]) OP-PT Subjective Patient Comments Patient Comments Pt notes her knee was pretty was pretty sore earlier today. Overall no big changes. PT-OP-F Manual Assessment Start: 02/26/18 09:27 Freq: Status: Active Protocol: Document 03/16/18 15:15 DCW (Rec: 03/17/18 12:37 DCW [id number]) Manual Assessments Soft Tissue Assessment Soft Tissue Mobility Assessment Edema around right patella tendon, tenderness 2/4 - Pain with wincing along lateral joint line Joint Mobility Assessment Joint Mobility Assessment Mild laxity with right anterior drawer, significant increased mobility of patella in all directions, moderate-> severe crepitus at patellofemoral joint with any knee extension PT-OP-K Range of Motion Start: 02/26/18 09:27 Freq: Status: Active Protocol: Document 03/16/18 15:15 DCW (Rec: 03/17/18 12:37 DCW [id number]) Knee Goniometric Range of Motion Knee Measured in Degrees Right Knee ROM WFL No Patient Position Supine Flexion Active (degrees) 116 Flexion Passive (degrees) 0 Left Knee ROM WFL Yes Patient Position Supine Flexion Active (degrees) 135 Flexion Passive (degrees) 0 Knee ROM Limitations Knee ROM Limitations Soft Tissue Tightness Bony Restriction Pain PT-OP-L Special Tests Start: 02/26/18 09:27 Freq: Status: Active Protocol: Document 03/16/18 15:15 DCW (Rec: 03/17/18 12:37 DCW [id number]) Special Tests Knee Special Tests Posterior Draw Test Results Negative Patellar Grind Test Test Results Positive Patella Tap Test Results Positive Murphy Test Test Results 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 Results Patella pain in all positions Apprehension Test Test Results Positive Apley's Compression Test Results Positive Anterior Draw Test Results Mild laxity PT-OP-M Strength Start: 02/26/18 09:27 Freq: Status: Active Protocol: Document 03/16/18 15:15 DCW (Rec: 03/17/18 12:37 DCW [id number]) Knee Strength Knee Manual Muscle Testing Right Flexion (S2) 4+ Good+ Extension (L3) 4- Good- Comments Pain and crepitus with resisted right extension Left Flexion (S2) 5 Normal Extension (L3) 5 Normal PT-OP-Q Treatments Start: 02/26/18 09:27 Freq: Status: Active Protocol: Document 04/06/18 15:20 DCW (Rec: 04/06/18 15:57 DCW [id number]) Cardio Equipment Recumbent Bicycle Duration (Minutes) 6 Resistance 5 Seat Position 8 Gym Equipment Shuttle Recovery Plyometric Hopping Resistance 25# Unilateral Squats Details Shallow squat Resistance 62# Shuttle Recovery Platform Stable Bilateral Squats Details Adductor ball squeeze, shallow squat Resistance 100# Shuttle Recovery Platform Stable Shuttle Balance Red Details Wide RICKI, Staggered Stance, Lateral weight shift Therapeutic Exercises Standing Exercises TKE Standing Exercise Name TKE Side right Resistance Lv 3 Equipment Used T-band Manual Therapy Treatment Joint Mobilizations 2 Joint Patellofemoral joint mobilization Direction Superior<->Inferior Grade III Body Position Supine 1 Joint Tibiofemoral joint mobilization Direction P->A Grade III Body Position Hooklying Taping 1 Body Location Right knee Treatment Focus Stability/Support Type of Tape Kinesio Tape Skin Inspection WNL Comments Y strip lateral->medial across patella, Y-strip along vastus medialis origin->insertion PT-OP-R Modalities Start: 02/26/18 09:27 Freq: Status: Active Protocol: Document 04/06/18 15:20 DCW (Rec: 04/06/18 15:57 DCW [id number]) Electric Stimulation Electric Stimulation Interferential Current (IFC) Body Location Right knee Duration (Minutes) 15 Intensity 11 Patient Position Hooklying Combined With Heat/Cold Cold Pack PT-OP-T Assessment and Plan Start: 02/26/18 09:27 Freq: Status: Active Protocol: Document 04/06/18 15:20 DCW (Rec: 04/06/18 15:57 DCW [id number]) Physical Therapy Assessment Impairments Impairments Activity Tolerance Functional Activities Functional Mobility Pain ROM Soft Tissue Mobility Strength Goals Four Impairment Weakness Short Term Goal (STG) Right knee extension to 4+/5 STG Duration 04/15/18 Three Impairment ROM Short Term Goal (STG) Right knee flexion to 125? STG Duration 04/15/18 Fence Setter Goal (LTG) Right knee flexion equal to left knee flexion Two Impairment Pt unable to run with [place] Fpc Goal (LTG) Pt to run/walk [place] of [place] with her children with no increased knee pain LTG Duration 05/16/18 One Impairment Pt does not have an appropriate Home exericse program Short Term Goal (STG) Pt to be independent and consistent performing appropriate HEP STG Duration 04/15/18 Assessment Summary Assessment Pt continues to present with no real changes since return to therapy. Physical Therapy Plan Frequency and Duration Frequency of Treatment 2x/Week Duration of Treatment 12 weeks Plan of Care Start Date 03/16/18 Plan of Care End Date 06/08/18 Therapeutic Interventions Therapeutic Interventions Aquatic Therapy Balance Training Home Exercise Program Manual Therapy Neuromuscular Re-education Patient/Caregiver Education Self-Care/Home Management Soft Tissue Mobilization Taping Therapeutic Activities Therapeutic Exercises Modalities Cold Pack/Ice Massage Electric Stimulation Hot Packs Ultrasound Next Visit Focus/Plan Next Note Type Treatment Note Next Visit Plan LE strengthening, joint stability, ROM
--- NOTE | 2018-04-10 13:55 | PT.OTN ---
Current Diagnoses Unspecified internal derangement of right knee (04/10/18) Physical Therapy Treatment Note PT-OP-A Visit Information Start: 02/26/18 09:27 Freq: Status: Active Protocol: Document 04/10/18 12:48 LRN (Rec: 04/10/18 13:51 LRN [id number]) Out-Patient Physical Therapy Visit Information Visit Information Visit Type Treatment Note Visit Start Time 12:48 Visit Stop Time 13:40 Total Visit Minutes 52 Visit Number 16 Number of OUTSIDE PLANT TECHNICIAN Visits 0 Evaluation Information Evaluation Date 08/11/17 PT-OP-B Current Condition Start: 02/26/18 09:27 Freq: Status: Active Protocol: Document 03/16/18 15:15 DCW (Rec: 03/17/18 12:37 DCW [id number]) Current Condition History of Current Condition Onset Date one year Current Complaints Knee pain, instability, loss of ROM, weakness History of Current Condition Pt is a 31 year old female presenting with a one year history of right knee pain. Pt was previously treated at this clinic earlier in the year, and was on hold while she had other testing/ procedures performed. last month, she received an injection in her knee, and was told to return to therapy in one month for ROM and strengthening. 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 Pt notes that they initially believed she had a meniscal tear, and plan to do surgery, however after an x-ray revealed substantial degeneration of the joint space, they wanted to attempt injection and therapy prior to surgery. 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 Prior Functional Status Baseline Function- ADL's Independent Baseline Function- Mobility Independent Current Functional Impairments (Reported) Functional Limitations- Work/School Increased stiffness and edema with being on her feet for extended periods at work, but nothing stops me from actually going to work. PT-OP-C Subjective Start: 02/26/18 09:27 Freq: Status: Active Protocol: Document 04/10/18 12:48 LRN (Rec: 04/10/18 13:51 LRN [id number]) OP-PT Subjective Patient Comments Patient Comments Little better, walking is a little less painful, by 1/2 grade. PT-OP-F Manual Assessment Start: 02/26/18 09:27 Freq: Status: Active Protocol: Document 03/16/18 15:15 DCW (Rec: 03/17/18 12:37 DCW [id number]) Manual Assessments Soft Tissue Assessment Soft Tissue Mobility Assessment Edema around right patella tendon, tenderness 2/4 - Pain with wincing along lateral joint line Joint Mobility Assessment Joint Mobility Assessment Mild laxity with right anterior drawer, significant increased mobility of patella in all directions, moderate-> severe crepitus at patellofemoral joint with any knee extension PT-OP-K Range of Motion Start: 02/26/18 09:27 Freq: Status: Active Protocol: Document 04/10/18 12:48 LRN (Rec: 04/10/18 13:52 LRN [id number]) Knee Goniometric Range of Motion Knee Measured in Degrees Right Knee ROM WFL Yes Patient Position Supine Flexion Active (degrees) 138 Extension Active (degrees) 0 Left Knee ROM WFL Yes Patient Position Supine Flexion Active (degrees) 138 Extension Active (degrees) 0 PT-OP-L Special Tests Start: 02/26/18 09:27 Freq: Status: Active Protocol: Document 03/16/18 15:15 DCW (Rec: 03/17/18 12:37 DCW [id number]) Special Tests Knee Special Tests Posterior Draw Test Results Negative Patellar Grind Test Test Results Positive Patella Tap Test Results Positive Murphy Test Test Results 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 Results Patella pain in all positions Apprehension Test Test Results Positive Apley's Compression Test Results Positive Anterior Draw Test Results Mild laxity PT-OP-M Strength Start: 02/26/18 09:27 Freq: Status: Active Protocol: Document 03/16/18 15:15 DCW (Rec: 03/17/18 12:37 DCW [id number]) Knee Strength Knee Manual Muscle Testing Right Flexion (S2) 4+ Good+ Extension (L3) 4- Good- Comments Pain and crepitus with resisted right extension Left Flexion (S2) 5 Normal Extension (L3) 5 Normal PT-OP-Q Treatments Start: 02/26/18 09:27 Freq: Status: Active Protocol: Document 04/10/18 12:48 LRN (Rec: 04/10/18 13:51 LRN [id number]) Cardio Equipment Bicycle (Upright) Duration (Minutes) 8 Resistance 3 Seat Position 7 Other RPM no less than 70 Gym Equipment Shuttle Recovery Plyometric Hopping Details 10 before, 50 after taping Resistance 25# Reps/Time 10, 50 Unilateral Squats Details Shallow squat Resistance 62# Shuttle Recovery Platform Stable Bilateral Squats Details Adductor ball squeeze, shallow squat Resistance 100# Shuttle Recovery Platform Stable Reps/Time 50 Shuttle Balance Red Details Wide RICKI, Staggered Stance, Lateral weight shift Comments With 30 squats each position Manual Therapy Treatment Taping 2 Body Location R knee Treatment Focus Facilitate Tib/Fib IR on ext and medial glide on Femur Type of Tape Kinesio Tape Skin Inspection Good Comments Extra time taken to redo due to poor placement the first time. No pain with jumping on Shuttle with K-tape 1 Body Location Right knee Treatment Focus Stability/Support Type of Tape Kinesio Tape Skin Inspection WNL Comments Y strip lateral->medial across patella Manual Techniques MWM Type R Tib/Fib IR with squats on Shuttle Body Location R knee Body Position Supine Self-Care/Home Management Treatment Education Patient Education Home Exercise Program Activities Self-Care/Home Management Activities I/S pt in doing partial squats to strengthen R medial quad. PT-OP-R Modalities Start: 02/26/18 09:27 Freq: Status: Active Protocol: Document 04/10/18 12:48 LRN (Rec: 04/10/18 13:51 LRN [id number]) Electric Stimulation Electric Stimulation Interferential Current (IFC) Body Location Right knee Duration (Minutes) 10 Intensity 13 Patient Position Hooklying Combined With Heat/Cold Cold Pack Hot Pack/Cold Pack Treatment Cold Pack Location R knee Patient Position Supine Treatment Duration (minutes) 10 Patient Tolerance Good Comments Performed with E-Stim PT-OP-T Assessment and Plan Start: 02/26/18 09:27 Freq: Status: Active Protocol: Document 04/10/18 12:48 LRN (Rec: 04/10/18 13:51 LRN [id number]) Physical Therapy Assessment Goals Three Impairment ROM Short Term Goal (STG) Right knee flexion to 125? STG Duration 04/10/18 GOAL MET, R knee flexion 138 deg's Senior Investigator Goal (LTG) Right knee flexion equal to left knee flexion LTG Duration 04/10/18 GOAL MET Progress Towards Goals Progress Towards Goals Progressing Toward Goals Progress Comments Full R knee AROM without pain. Pain with standing squats. Assessment Summary Assessment Sight improvement. Painfree plyometric@ 25# with K-tape. Full R knee AROM without pain. Physical Therapy Plan Frequency and Duration Frequency of Treatment 1x/Week Duration of Treatment 12 weeks Plan of Care Start Date 03/16/18 Plan of Care End Date 06/08/18 Next Visit Focus/Plan Next Note Type Treatment Note Next Visit Plan K-tape, LE - primarily R medial quad strengthening, joint stability for pt to achieve standing squat without pain.
--- NOTE | 2018-04-13 15:59 | PT.OTN ---
Current Diagnoses Unspecified internal derangement of right knee (04/13/18) Physical Therapy Treatment Note PT-OP-A Visit Information Start: 02/26/18 09:27 Freq: Status: Active Protocol: Document 04/13/18 15:20 DCW (Rec: 04/13/18 15:59 DCW [id number]) Out-Patient Physical Therapy Visit Information Visit Information Visit Type Treatment Note Visit Note 5 minutes late Visit Start Time 15:20 Visit Stop Time 16:10 Total Visit Minutes 50 Visit Number 17 Number of COGNOS ARCHITECT Visits 0 Evaluation Information Evaluation Date 08/11/17 PT-OP-B Current Condition Start: 02/26/18 09:27 Freq: Status: Active Protocol: Document 03/16/18 15:15 DCW (Rec: 03/17/18 12:37 DCW [id number]) Current Condition History of Current Condition Onset Date one year Current Complaints Knee pain, instability, loss of ROM, weakness History of Current Condition Pt is a 31 year old female presenting with a one year history of right knee pain. Pt was previously treated at this clinic earlier in the year, and was on hold while she had other testing/ procedures performed. last month, she received an injection in her knee, and was told to return to therapy in one month for ROM and strengthening. 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 Pt notes that they initially believed she had a meniscal tear, and plan to do surgery, however after an x-ray revealed substantial degeneration of the joint space, they wanted to attempt injection and therapy prior to surgery. 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 Prior Functional Status Baseline Function- ADL's Independent Baseline Function- Mobility Independent Current Functional Impairments (Reported) Functional Limitations- Work/School Increased stiffness and edema with being on her feet for extended periods at work, but nothing stops me from actually going to work. PT-OP-C Subjective Start: 02/26/18 09:27 Freq: Status: Active Protocol: Document 04/13/18 15:20 DCW (Rec: 04/13/18 15:59 DCW [id number]) OP-PT Subjective Patient Comments Patient Comments Pt reports that her knee feels okay right now, but admits that it was sore earlier today . PT-OP-F Manual Assessment Start: 02/26/18 09:27 Freq: Status: Active Protocol: Document 03/16/18 15:15 DCW (Rec: 03/17/18 12:37 DCW [id number]) Manual Assessments Soft Tissue Assessment Soft Tissue Mobility Assessment Edema around right patella tendon, tenderness 2/4 - Pain with wincing along lateral joint line Joint Mobility Assessment Joint Mobility Assessment Mild laxity with right anterior drawer, significant increased mobility of patella in all directions, moderate-> severe crepitus at patellofemoral joint with any knee extension PT-OP-K Range of Motion Start: 02/26/18 09:27 Freq: Status: Active Protocol: Document 04/10/18 12:48 LRN (Rec: 04/10/18 13:52 LRN [id number]) Knee Goniometric Range of Motion Knee Measured in Degrees Right Knee ROM WFL Yes Patient Position Supine Flexion Active (degrees) 138 Extension Active (degrees) 0 Left Knee ROM WFL Yes Patient Position Supine Flexion Active (degrees) 138 Extension Active (degrees) 0 PT-OP-L Special Tests Start: 02/26/18 09:27 Freq: Status: Active Protocol: Document 03/16/18 15:15 DCW (Rec: 03/17/18 12:37 DCW [id number]) Special Tests Knee Special Tests Posterior Draw Test Results Negative Patellar Grind Test Test Results Positive Patella Tap Test Results Positive Murphy Test Test Results 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 Results Patella pain in all positions Apprehension Test Test Results Positive Apley's Compression Test Results Positive Anterior Draw Test Results Mild laxity PT-OP-M Strength Start: 02/26/18 09:27 Freq: Status: Active Protocol: Document 03/16/18 15:15 DCW (Rec: 03/17/18 12:37 DCW [id number]) Knee Strength Knee Manual Muscle Testing Right Flexion (S2) 4+ Good+ Extension (L3) 4- Good- Comments Pain and crepitus with resisted right extension Left Flexion (S2) 5 Normal Extension (L3) 5 Normal PT-OP-Q Treatments Start: 02/26/18 09:27 Freq: Status: Active Protocol: Document 04/13/18 15:20 DCW (Rec: 04/13/18 15:59 DCW [id number]) Cardio Equipment Recumbent Bicycle Duration (Minutes) 6 Resistance 5 Seat Position 7 Gym Equipment Shuttle Recovery Plyometric Hopping Resistance 25# Reps/Time x60 Unilateral Squats Details Shallow squat Resistance 62# Shuttle Recovery Platform Stable Bilateral Squats Details Adductor ball squeeze, shallow squat Resistance 100# Shuttle Recovery Platform Stable Reps/Time 50 Shuttle Balance Red Details Wide RICKI (Squats), Staggered Stance, Lateral weight shift Manual Therapy Treatment Joint Mobilizations 2 Joint Patellofemoral joint mobilization Direction Superior<->Inferior Grade III Body Position Supine 1 Joint Tibiofemoral joint mobilization Direction P->A Grade III Body Position Hooklying Taping 2 Body Location R knee Treatment Focus Facilitate Tib/Fib IR on ext and medial glide on Femur Type of Tape Kinesio Tape Skin Inspection Good Comments Extra time taken to redo due to poor placement the first time. No pain with jumping on Shuttle with K-tape 1 Body Location Right knee Treatment Focus Stability/Support Type of Tape Kinesio Tape Skin Inspection WNL Comments Y strip lateral->medial across patella PT-OP-R Modalities Start: 02/26/18 09:27 Freq: Status: Active Protocol: Document 04/13/18 15:20 DCW (Rec: 04/13/18 15:59 DCW [id number]) Electric Stimulation Electric Stimulation Interferential Current (IFC) Body Location Right knee Duration (Minutes) 15 Intensity 11 Patient Position Hooklying Combined With Heat/Cold Cold Pack PT-OP-T Assessment and Plan Start: 02/26/18 09:27 Freq: Status: Active Protocol: Document 04/13/18 15:20 DCW (Rec: 04/13/18 15:59 DCW [id number]) Physical Therapy Assessment Impairments Impairments Activity Tolerance Functional Activities Functional Mobility Pain ROM Soft Tissue Mobility Strength Goals Four Impairment Weakness Short Term Goal (STG) Right knee extension to 4+/5 STG Duration 04/15/18 Three Impairment ROM Short Term Goal (STG) Right knee flexion to 125? STG Duration 04/15/18 Production Supply Equipment Tender Goal (LTG) Right knee flexion equal to left knee flexion Two Impairment Pt unable to run with children on [place] Production Supply Equipment Tender Goal (LTG) Pt to run/walk length of [place] with her children with no increased knee pain LTG Duration 05/16/18 One Impairment Pt does not have an appropriate Home exercise program Short Term Goal (STG) Pt to be independent and consistent performing appropriate HEP STG Duration 04/15/18 Assessment Summary Assessment Pt again tolerated all exercisee pain-free after taping. Physical Therapy Plan Frequency and Duration Frequency of Treatment 2x/Week Duration of Treatment 12 weeks Plan of Care Start Date 03/16/18 Plan of Care End Date 06/08/18 Therapeutic Interventions Therapeutic Interventions Aquatic Therapy Balance Training Home Exercise Program Manual Therapy Neuromuscular Re-education Patient/Caregiver Education Self-Care/Home Management Soft Tissue Mobilization Taping Therapeutic Activities Therapeutic Exercises Modalities Cold Pack/Ice Massage Electric Stimulation Hot Packs Ultrasound Next Visit Focus/Plan Next Note Type Treatment Note Next Visit Plan LE strengthening, joint stability, ROM
--- NOTE | 2018-04-17 12:03 | PT.OTN ---
Current Diagnoses Unspecified internal derangement of right knee (04/17/18) Physical Therapy Treatment Note PT-OP-A Visit Information Start: 02/26/18 09:27 Freq: Status: Active Protocol: Document 04/17/18 10:55 LRN (Rec: 04/17/18 12:03 LRN [id number]) Out-Patient Physical Therapy Visit Information Visit Information Visit Type Treatment Note Visit Note 5 minutes late Visit Start Time 10:55 Visit Stop Time 11:45 Total Visit Minutes 50 Visit Number 18 Number of LINE ERECTOR Visits 0 Evaluation Information Evaluation Date 08/11/17 PT-OP-B Current Condition Start: 02/26/18 09:27 Freq: Status: Active Protocol: Document 03/16/18 15:15 DCW (Rec: 03/17/18 12:37 DCW [id number]) Current Condition History of Current Condition Onset Date one year Current Complaints Knee pain, instability, loss of ROM, weakness History of Current Condition Pt is a 31 year old female presenting with a one year history of right knee pain. Pt was previously treated at this clinic earlier in the year, and was on hold while she had other testing/ procedures performed. last month, she received an injection in her knee, and was told to return to therapy in one month for ROM and strengthening. 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 Pt notes that they initially believed she had a meniscal tear, and plan to do surgery, however after an x-ray revealed substantial degeneration of the joint space, they wanted to attempt injection and therapy prior to surgery. 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 Prior Functional Status Baseline Function- ADL's Independent Baseline Function- Mobility Independent Current Functional Impairments (Reported) Functional Limitations- Work/School Increased stiffness and edema with being on her feet for extended periods at work, but nothing stops me from actually going to work. PT-OP-C Subjective Start: 02/26/18 09:27 Freq: Status: Active Protocol: Document 04/17/18 10:55 LRN (Rec: 04/17/18 12:03 LRN [id number]) OP-PT Subjective Patient Comments Patient Comments 50% better, can bend more. States X-rays showed bone on bone at the knee, thats why she gets injections. PT-OP-F Manual Assessment Start: 02/26/18 09:27 Freq: Status: Active Protocol: Document 03/16/18 15:15 DCW (Rec: 03/17/18 12:37 DCW [id number]) Manual Assessments Soft Tissue Assessment Soft Tissue Mobility Assessment Edema around right patella tendon, tenderness 2/4 - Pain with wincing along lateral joint line Joint Mobility Assessment Joint Mobility Assessment Mild laxity with right anterior drawer, significant increased mobility of patella in all directions, moderate-> severe crepitus at patellofemoral joint with any knee extension PT-OP-K Range of Motion Start: 02/26/18 09:27 Freq: Status: Active Protocol: Document 04/10/18 12:48 LRN (Rec: 04/10/18 13:52 LRN [id number]) Knee Goniometric Range of Motion Knee Measured in Degrees Right Knee ROM WFL Yes Patient Position Supine Flexion Active (degrees) 138 Extension Active (degrees) 0 Left Knee ROM WFL Yes Patient Position Supine Flexion Active (degrees) 138 Extension Active (degrees) 0 PT-OP-L Special Tests Start: 02/26/18 09:27 Freq: Status: Active Protocol: Document 03/16/18 15:15 DCW (Rec: 03/17/18 12:37 DCW [id number]) Special Tests Knee Special Tests Posterior Draw Test Results Negative Patellar Grind Test Test Results Positive Patella Tap Test Results Positive Murphy Test Test Results 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 Results Patella pain in all positions Apprehension Test Test Results Positive Apley's Compression Test Results Positive Anterior Draw Test Results Mild laxity PT-OP-M Strength Start: 02/26/18 09:27 Freq: Status: Active Protocol: Document 03/16/18 15:15 DCW (Rec: 03/17/18 12:37 DCW [id number]) Knee Strength Knee Manual Muscle Testing Right Flexion (S2) 4+ Good+ Extension (L3) 4- Good- Comments Pain and crepitus with resisted right extension Left Flexion (S2) 5 Normal Extension (L3) 5 Normal PT-OP-Q Treatments Start: 02/26/18 09:27 Freq: Status: Active Protocol: Document 04/17/18 10:55 LRN (Rec: 04/17/18 12:03 LRN [id number]) Gym Equipment Shuttle Recovery Plyometric Hopping Resistance 25# Reps/Time x60 Unilateral Squats Details Shallow squat Resistance 62# Shuttle Recovery Platform Stable Reps/Time 50x R LE Bilateral Squats Details Adductor ball squeeze, shallow squat Resistance 100# Shuttle Recovery Platform Stable Reps/Time 50 Manual Therapy Treatment Joint Mobilizations 1 Joint Tibiofemoral joint mobilization Direction P->A Grade III Body Position Hooklying Comments Pt had pain with mob; therefore held. Taping 2 Body Location R knee Treatment Focus Facilitate Tib/Fib IR on ext and medial glide on Femur Type of Tape Kinesio Tape Skin Inspection Good Comments Extra time taken to redo due to poor placement the first time. No pain with jumping on Shuttle with K-tape 1 Body Location Right knee Treatment Focus Stability/Support Type of Tape Kinesio Tape Skin Inspection WNL Comments Y strip lateral->medial across patella PT-OP-R Modalities Start: 02/26/18 09:27 Freq: Status: Active Protocol: Document 04/17/18 10:55 LRN (Rec: 04/17/18 12:03 LRN [id number]) Electric Stimulation Electric Stimulation Interferential Current (IFC) Body Location Right knee Duration (Minutes) 15 Intensity 14 Patient Position Hooklying Combined With Heat/Cold Cold Pack Hot Pack/Cold Pack Treatment Cold Pack Location R knee Patient Position Supine Treatment Duration (minutes) 15 Patient Tolerance Good Comments Performed with E-Stim Ultrasound Therapy Treatment R lateral knee/adjacent lateral thigh Treatment Duration (minutes) 8 Patient Position Sidelying Duty Cycle 50% Intensity Setting (w/cm2) 1.5 Comments Pt L Sidelie: knees maximally flexed. PT-OP-T Assessment and Plan Start: 02/26/18 09:27 Freq: Status: Active Protocol: Document 04/17/18 10:55 LRN (Rec: 04/17/18 12:03 LRN [id number]) Physical Therapy Assessment Impairments Impairments Activity Tolerance Functional Activities Functional Mobility Pain Soft Tissue Mobility Strength Goals Three Impairment ROM Short Term Goal (STG) Right knee flexion to 125? STG Duration 04/10/18 GOAL MET, R knee flexion 138 deg's Usp Goal (LTG) Right knee flexion equal to left knee flexion LTG Duration 04/10/18 GOAL MET Progress Towards Goals Progress Towards Goals Progressing Toward Goals Progress Comments Activity tolerance slowly increasing. Pain with standing squats. Assessment Summary Assessment R knee bone on bone with pain on squatting. Tightness at the lateral R knee with non- WBing squat position. Pt needs R knee stabilization. Physical Therapy Plan Frequency and Duration Frequency of Treatment 1x/Week Duration of Treatment 12 weeks Plan of Care Start Date 03/16/18 Plan of Care End Date 06/08/18 Next Visit Focus/Plan Next Note Type Treatment Note Next Visit Plan K-tape, LE - primarily R medial quad strengthening, joint stability for pt to achieve standing squat without pain.
--- NOTE | 2018-05-12 16:59 | PT.OTN ---
Current Diagnoses Unspecified internal derangement of right knee (05/12/18) Physical Therapy Treatment Note PT-OP-A Visit Information Start: 02/26/18 09:27 Freq: Status: Active Protocol: Document 05/12/18 15:15 DCW (Rec: 05/12/18 16:59 DCW [id number]) Out-Patient Physical Therapy Visit Information Visit Information Visit Type Treatment Note Visit Start Time 15:15 Visit Stop Time 15:55 Total Visit Minutes 40 Visit Number 19 Number of EDUCATIONAL ADMINISTRATOR Visits 0 Evaluation Information Evaluation Date 08/11/17 PT-OP-B Current Condition Start: 02/26/18 09:27 Freq: Status: Active Protocol: Document 03/16/18 15:15 DCW (Rec: 03/17/18 12:37 DCW [id number]) Current Condition History of Current Condition Onset Date one year Current Complaints Knee pain, instability, loss of ROM, weakness History of Current Condition Pt is a 31 year old female presenting with a one year history of right knee pain. Pt was previously treated at this clinic earlier in the year, and was on hold while she had other testing/ procedures performed. last month, she received an injection in her knee, and was told to return to therapy in one month for ROM and strengthening. 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 Pt notes that they initially believed she had a meniscal tear, and plan to do surgery, however after an x-ray revealed substantial degeneration of the joint space, they wanted to attempt injection and therapy prior to surgery. 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 Prior Functional Status Baseline Function- ADL's Independent Baseline Function- Mobility Independent Current Functional Impairments (Reported) Functional Limitations- Work/School Increased stiffness and edema with being on her feet for extended periods at work, but nothing stops me from actually going to work. PT-OP-C Subjective Start: 02/26/18 09:27 Freq: Status: Active Protocol: Document 05/12/18 15:15 DCW (Rec: 05/12/18 16:59 DCW [id number]) OP-PT Subjective Patient Comments Patient Comments Pt notes she is good today, but was having increased pain last week, although admits she was also sick at that time, and was pretty much sore everywhere. PT-OP-F Manual Assessment Start: 02/26/18 09:27 Freq: Status: Active Protocol: Document 03/16/18 15:15 DCW (Rec: 03/17/18 12:37 DCW [id number]) Manual Assessments Soft Tissue Assessment Soft Tissue Mobility Assessment Edema around right patella tendon, tenderness 2/4 - Pain with wincing along lateral joint line Joint Mobility Assessment Joint Mobility Assessment Mild laxity with right anterior drawer, significant increased mobility of patella in all directions, moderate-> severe crepitus at patellofemoral joint with any knee extension PT-OP-K Range of Motion Start: 02/26/18 09:27 Freq: Status: Active Protocol: Document 04/10/18 12:48 LRN (Rec: 04/10/18 13:52 LRN [id number]) Knee Goniometric Range of Motion Knee Measured in Degrees Right Knee ROM WFL Yes Patient Position Supine Flexion Active (degrees) 138 Extension Active (degrees) 0 Left Knee ROM WFL Yes Patient Position Supine Flexion Active (degrees) 138 Extension Active (degrees) 0 PT-OP-L Special Tests Start: 02/26/18 09:27 Freq: Status: Active Protocol: Document 03/16/18 15:15 DCW (Rec: 03/17/18 12:37 DCW [id number]) Special Tests Knee Special Tests Posterior Draw Test Results Negative Patellar Grind Test Test Results Positive Patella Tap Test Results Positive Murphy Test Test Results 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 Results Patella pain in all positions Apprehension Test Test Results Positive Apley's Compression Test Results Positive Anterior Draw Test Results Mild laxity PT-OP-M Strength Start: 02/26/18 09:27 Freq: Status: Active Protocol: Document 03/16/18 15:15 DCW (Rec: 03/17/18 12:37 DCW [id number]) Knee Strength Knee Manual Muscle Testing Right Flexion (S2) 4+ Good+ Extension (L3) 4- Good- Comments Pain and crepitus with resisted right extension Left Flexion (S2) 5 Normal Extension (L3) 5 Normal PT-OP-Q Treatments Start: 02/26/18 09:27 Freq: Status: Active Protocol: Document 05/12/18 15:15 DCW (Rec: 05/12/18 16:59 DCW [id number]) Cardio Equipment Recumbent Bicycle Duration (Minutes) 6 Resistance 5 Seat Position 7 Gym Equipment Shuttle Recovery Plyometric Hopping Resistance 37# Reps/Time x60 Unilateral Squats Details Shallow squat Resistance 75# Shuttle Recovery Platform Stable Bilateral Squats Details Adductor ball squeeze, shallow squat Resistance 112# Shuttle Recovery Platform Stable Reps/Time 50 Shuttle Balance Red Details Wide RICKI (Squats), Staggered Stance, Lateral weight shift Manual Therapy Treatment Joint Mobilizations 2 Joint Patellofemoral joint mobilization Direction Superior<->Inferior Grade III Body Position Supine 1 Joint Tibiofemoral joint mobilization Direction P->A Grade III Body Position Hooklying Taping 2 Body Location R knee Treatment Focus Facilitate Tib/Fib IR on ext and medial glide on Femur Type of Tape Kinesio Tape Skin Inspection Good PT-OP-R Modalities Start: 02/26/18 09:27 Freq: Status: Active Protocol: Document 04/17/18 10:55 LRN (Rec: 04/17/18 12:03 LRN [id number]) Electric Stimulation Electric Stimulation Interferential Current (IFC) Body Location Right knee Duration (Minutes) 15 Intensity 14 Patient Position Hooklying Combined With Heat/Cold Cold Pack Hot Pack/Cold Pack Treatment Cold Pack Location R knee Patient Position Supine Treatment Duration (minutes) 15 Patient Tolerance Good Comments Performed with E-Stim Ultrasound Therapy Treatment R lateral knee/adjacent lateral thigh Treatment Duration (minutes) 8 Patient Position Sidelying Duty Cycle 50% Intensity Setting (w/cm2) 1.5 Comments Pt L Sidelie: knees maximally flexed. PT-OP-T Assessment and Plan Start: 02/26/18 09:27 Freq: Status: Active Protocol: Document 05/12/18 15:15 DCW (Rec: 05/12/18 16:59 DCW [id number]) Physical Therapy Assessment Goals Four Impairment Weakness Short Term Goal (STG) Right knee extension to 4+/5 STG Duration 04/15/18 Three Impairment ROM Short Term Goal (STG) Right knee flexion to 125? STG Duration 04/15/18 Display Manager Goal (LTG) Right knee flexion equal to left knee flexion Two Impairment Pt unable to run with children on [place] Display Manager Goal (LTG) Pt to run/walk [place] of [place] with her children with no increased knee pain LTG Duration 05/16/18 One Impairment Pt does not have an appropriate Home exercise program Short Term Goal (STG) Pt to be independent and consistent performing appropriate HEP STG Duration 04/15/18 Assessment Summary Assessment Pt notes improvement since return to physical therapy, however still has difficulty with knee stability and occasional pain. Physical Therapy Plan Frequency and Duration Frequency of Treatment 1x/Week Duration of Treatment 12 weeks Plan of Care Start Date 03/16/18 Plan of Care End Date 06/08/18 Therapeutic Interventions Therapeutic Interventions Aquatic Therapy Balance Training Home Exercise Program Manual Therapy Neuromuscular Re-education Patient/Caregiver Education Self-Care/Home Management Soft Tissue Mobilization Taping Therapeutic Activities Therapeutic Exercises Modalities Cold Pack/Ice Massage Electric Stimulation Hot Packs Ultrasound Next Visit Focus/Plan Next Note Type Treatment Note Next Visit Plan K-tape, LE - primarily R medial quad strengthening, joint stability for pt to achieve standing squat without pain.
--- NOTE | 2018-05-21 15:57 | PT.OTN ---
Current Diagnoses Unspecified internal derangement of right knee (05/21/18) Physical Therapy Treatment Note PT-OP-A Visit Information Start: 02/26/18 09:27 Freq: Status: Active Protocol: Document 05/21/18 15:15 DCW (Rec: 05/21/18 15:56 DCW [id number]) Out-Patient Physical Therapy Visit Information Visit Information Visit Type Treatment Note Visit Start Time 15:15 Visit Stop Time 16:15 Total Visit Minutes 60 Visit Number 20 Number of HEALTH AND WELLNESS INSTRUCTOR Visits 0 Evaluation Information Evaluation Date 08/11/17 PT-OP-B Current Condition Start: 02/26/18 09:27 Freq: Status: Active Protocol: Document 03/16/18 15:15 DCW (Rec: 03/17/18 12:37 DCW [id number]) Current Condition History of Current Condition Onset Date one year Current Complaints Knee pain, instability, loss of ROM, weakness History of Current Condition Pt is a 31 year old female presenting with a one year history of right knee pain. Pt was previously treated at this clinic earlier in the year, and was on hold while she had other testing/ procedures performed. last month, she received an injection in her knee, and was told to return to therapy in one month for ROM and strengthening. 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 Pt notes that they initially believed she had a meniscal tear, and plan to do surgery, however after an x-ray revealed substantial degeneration of the joint space, they wanted to attempt injection and therapy prior to surgery. 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 Prior Functional Status Baseline Function- ADL's Independent Baseline Function- Mobility Independent Current Functional Impairments (Reported) Functional Limitations- Work/School Increased stiffness and edema with being on her feet for extended periods at work, but nothing stops me from actually going to work. PT-OP-C Subjective Start: 02/26/18 09:27 Freq: Status: Active Protocol: Document 05/21/18 15:15 DCW (Rec: 05/21/18 15:56 DCW [id number]) OP-PT Subjective Patient Comments Patient Comments Pt admits her knee has been bothering me, but its okay. PT-OP-F Manual Assessment Start: 02/26/18 09:27 Freq: Status: Active Protocol: Document 03/16/18 15:15 DCW (Rec: 03/17/18 12:37 DCW [id number]) Manual Assessments Soft Tissue Assessment Soft Tissue Mobility Assessment Edema around right patella tendon, tenderness 2/4 - Pain with wincing along lateral joint line Joint Mobility Assessment Joint Mobility Assessment Mild laxity with right anterior drawer, significant increased mobility of patella in all directions, moderate-> severe crepitus at patellofemoral joint with any knee extension PT-OP-K Range of Motion Start: 02/26/18 09:27 Freq: Status: Active Protocol: Document 04/10/18 12:48 LRN (Rec: 04/10/18 13:52 LRN [id number]) Knee Goniometric Range of Motion Knee Measured in Degrees Right Knee ROM WFL Yes Patient Position Supine Flexion Active (degrees) 138 Extension Active (degrees) 0 Left Knee ROM WFL Yes Patient Position Supine Flexion Active (degrees) 138 Extension Active (degrees) 0 PT-OP-L Special Tests Start: 02/26/18 09:27 Freq: Status: Active Protocol: Document 03/16/18 15:15 DCW (Rec: 03/17/18 12:37 DCW [id number]) Special Tests Knee Special Tests Posterior Draw Test Results Negative Patellar Grind Test Test Results Positive Patella Tap Test Results Positive Murphy Test Test Results 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 Results Patella pain in all positions Apprehension Test Test Results Positive Apley's Compression Test Results Positive Anterior Draw Test Results Mild laxity PT-OP-M Strength Start: 02/26/18 09:27 Freq: Status: Active Protocol: Document 03/16/18 15:15 DCW (Rec: 03/17/18 12:37 DCW [id number]) Knee Strength Knee Manual Muscle Testing Right Flexion (S2) 4+ Good+ Extension (L3) 4- Good- Comments Pain and crepitus with resisted right extension Left Flexion (S2) 5 Normal Extension (L3) 5 Normal PT-OP-Q Treatments Start: 02/26/18 09:27 Freq: Status: Active Protocol: Document 05/21/18 15:15 DCW (Rec: 05/21/18 15:56 DCW [id number]) Cardio Equipment Recumbent Bicycle Duration (Minutes) 6 Resistance 5 Seat Position 7 Gym Equipment Shuttle Recovery Plyometric Hopping Resistance 37# Reps/Time x60 Unilateral Squats Details Shallow squat Resistance 75# Shuttle Recovery Platform Stable Bilateral Squats Details Adductor ball squeeze, shallow squat Resistance 112# Shuttle Recovery Platform Stable Reps/Time 50 Shuttle Balance Red Details Wide RICKI (Squats), Staggered Stance, Lateral weight shift Manual Therapy Treatment Joint Mobilizations 2 Joint Patellofemoral joint mobilization Direction Superior<->Inferior Grade III Body Position Supine 1 Joint Tibiofemoral joint mobilization Direction P->A Grade III Body Position Hooklying Taping 2 Body Location R knee Treatment Focus Facilitate Tib/Fib IR on ext and medial glide on Femur Type of Tape Kinesio Tape Skin Inspection Good PT-OP-R Modalities Start: 02/26/18 09:27 Freq: Status: Active Protocol: Document 05/21/18 15:15 DCW (Rec: 05/21/18 15:57 DCW [id number]) Electric Stimulation Electric Stimulation Interferential Current (IFC) Body Location Right knee Duration (Minutes) 15 Intensity 12 Patient Position Hooklying Combined With Heat/Cold Cold Pack Hot Pack/Cold Pack Treatment Cold Pack Location R knee Patient Position Supine Treatment Duration (minutes) 15 Patient Tolerance Good Comments Performed with E-Stim PT-OP-T Assessment and Plan Start: 02/26/18 09:27 Freq: Status: Active Protocol: Document 05/21/18 15:15 DCW (Rec: 05/21/18 15:56 DCW [id number]) Physical Therapy Assessment Impairments Impairments Activity Tolerance Functional Activities Functional Mobility Pain ROM Soft Tissue Mobility Strength Goals Four Impairment Weakness Short Term Goal (STG) Right knee extension to 4+/5 STG Duration 04/15/18 Three Impairment ROM Short Term Goal (STG) Right knee flexion to 125? STG Duration 04/15/18 Operations Accountant Goal (LTG) Right knee flexion equal to left knee flexion Two Impairment Pt unable to run with children [place] Correction Goal (LTG) Pt to run/walk [place] of [place] with her children with no increased knee pain LTG Duration 05/16/18 One Impairment Pt does not have an appropriate Home exericse program Short Term Goal (STG) Pt to be independent and consistent performing appropriate HEP STG Duration 04/15/18 Assessment Summary Assessment Pt experienced mild soreness in anterior knee with all activity today Physical Therapy Plan Frequency and Duration Frequency of Treatment 1x/Week Duration of Treatment 12 weeks Plan of Care Start Date 03/16/18 Plan of Care End Date 06/08/18 Therapeutic Interventions Therapeutic Interventions Aquatic Therapy Balance Training Home Exercise Program Manual Therapy Neuromuscular Re-education Patient/Caregiver Education Self-Care/Home Management Soft Tissue Mobilization Taping Therapeutic Activities Therapeutic Exercises Modalities Cold Pack/Ice Massage Electric Stimulation Hot Packs Ultrasound Next Visit Focus/Plan Next Note Type Treatment Note Next Visit Plan K-tape, LE - primarily R medial quad strengthening, joint stability for pt to achieve standing squat without pain.
--- NOTE | 2018-06-05 14:49 | PT.OTN ---
Current Diagnoses Unspecified internal derangement of right knee (06/05/18) Physical Therapy Treatment Note PT-OP-A Visit Information Start: 02/26/18 09:27 Freq: Status: Active Protocol: Document 06/05/18 14:00 LRN (Rec: 06/05/18 14:38 LRN [id number]) Out-Patient Physical Therapy Visit Information Visit Information Visit Type Treatment Note Visit Start Time 14:00 Visit Stop Time 14:35 Total Visit Minutes 35 Visit Number 21 Number of RN NAVIGATOR Visits 0 Evaluation Information Evaluation Date 08/11/17 PT-OP-B Current Condition Start: 02/26/18 09:27 Freq: Status: Active Protocol: Document 03/16/18 15:15 DCW (Rec: 03/17/18 12:37 DCW [id number]) Current Condition History of Current Condition Onset Date one year Current Complaints Knee pain, instability, loss of ROM, weakness History of Current Condition Pt is a 31 year old female presenting with a one year history of right knee pain. Pt was previously treated at this clinic earlier in the year, and was on hold while she had other testing/ procedures performed. last month, she received an injection in her knee, and was told to return to therapy in one month for ROM and strengthening. 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 Pt notes that they initially believed she had a meniscal tear, and plan to do surgery, however after an x-ray revealed substantial degeneration of the joint space, they wanted to attempt injection and therapy prior to surgery. 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 Prior Functional Status Baseline Function- ADL's Independent Baseline Function- Mobility Independent Current Functional Impairments (Reported) Functional Limitations- Work/School Increased stiffness and edema with being on her feet for extended periods at work, but nothing stops me from actually going to work. PT-OP-C Subjective Start: 02/26/18 09:27 Freq: Status: Active Protocol: Document 06/05/18 14:00 LRN (Rec: 06/05/18 14:38 LRN [id number]) OP-PT Subjective Patient Comments Patient Comments States she is 75% better. Can go longer without pain and pain is not as intensity, rated as 6/10. PT-OP-F Manual Assessment Start: 02/26/18 09:27 Freq: Status: Active Protocol: Document 03/16/18 15:15 DCW (Rec: 03/17/18 12:37 DCW [id number]) Manual Assessments Soft Tissue Assessment Soft Tissue Mobility Assessment Edema around right patella tendon, tenderness 2/4 - Pain with wincing along lateral joint line Joint Mobility Assessment Joint Mobility Assessment Mild laxity with right anterior drawer, significant increased mobility of patella in all directions, moderate-> severe crepitus at patellofemoral joint with any knee extension PT-OP-K Range of Motion Start: 02/26/18 09:27 Freq: Status: Active Protocol: Document 04/10/18 12:48 LRN (Rec: 04/10/18 13:52 LRN [id number]) Knee Goniometric Range of Motion Knee Measured in Degrees Right Knee ROM WFL Yes Patient Position Supine Flexion Active (degrees) 138 Extension Active (degrees) 0 Left Knee ROM WFL Yes Patient Position Supine Flexion Active (degrees) 138 Extension Active (degrees) 0 PT-OP-L Special Tests Start: 02/26/18 09:27 Freq: Status: Active Protocol: Document 03/16/18 15:15 DCW (Rec: 03/17/18 12:37 DCW [id number]) Special Tests Knee Special Tests Posterior Draw Test Results Negative Patellar Grind Test Test Results Positive Patella Tap Test Results Positive Murphy Test Test Results 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 Results Patella pain in all positions Apprehension Test Test Results Positive Apley's Compression Test Results Positive Anterior Draw Test Results Mild laxity PT-OP-M Strength Start: 02/26/18 09:27 Freq: Status: Active Protocol: Document 03/16/18 15:15 DCW (Rec: 03/17/18 12:37 DCW [id number]) Knee Strength Knee Manual Muscle Testing Right Flexion (S2) 4+ Good+ Extension (L3) 4- Good- Comments Pain and crepitus with resisted right extension Left Flexion (S2) 5 Normal Extension (L3) 5 Normal PT-OP-Q Treatments Start: 02/26/18 09:27 Freq: Status: Active Protocol: Document 06/05/18 14:00 LRN (Rec: 06/05/18 14:38 LRN [id number]) Cardio Equipment Bicycle (Upright) Duration (Minutes) 6 Resistance 6 Seat Position 7 Gym Equipment Shuttle Recovery Plyometric Hopping Resistance 37# Reps/Time x60 Unilateral Squats Details Shallow squat Resistance 75# Shuttle Recovery Platform Stable Bilateral Squats Details Adductor ball squeeze, shallow squat Resistance 112# Shuttle Recovery Platform Stable Reps/Time 50 Manual Therapy Treatment Joint Mobilizations 2 Joint Patellofemoral joint mobilization Direction Superior<->Inferior Grade III Body Position Supine 1 Joint Tibiofemoral joint mobilization Direction P->A Grade III Body Position Hooklying Taping 2 Body Location R knee Treatment Focus Facilitate Tib/Fib IR on ext and medial glide on Femur Type of Tape Kinesio Tape Skin Inspection Good PT-OP-R Modalities Start: 02/26/18 09:27 Freq: Status: Active Protocol: Document 05/21/18 15:15 DCW (Rec: 05/21/18 15:57 DCW [id number]) Electric Stimulation Electric Stimulation Interferential Current (IFC) Body Location Right knee Duration (Minutes) 15 Intensity 12 Patient Position Hooklying Combined With Heat/Cold Cold Pack Hot Pack/Cold Pack Treatment Cold Pack Location R knee Patient Position Supine Treatment Duration (minutes) 15 Patient Tolerance Good Comments Performed with E-Stim PT-OP-T Assessment and Plan Start: 02/26/18 09:27 Freq: Status: Active Protocol: Document 06/05/18 14:00 LRN (Rec: 06/05/18 14:38 LRN [id number]) Physical Therapy Assessment Goals Four Impairment Weakness Short Term Goal (STG) Right knee extension to 4+/5 STG Duration 04/15/18 Three Impairment ROM Short Term Goal (STG) Right knee flexion to 125? (: Active Flex is 132 deg 's, Passive flexion is 140 deg 's) STG Duration 04/15/18 Elevator Mechanic Goal (LTG) Right knee flexion equal to left knee flexion. (06/05/18: Goal met, Pain at end-range PROM). Two Impairment Pt unable to run [place] Elevator Mechanic Goal (LTG) Pt to run/walk [place] with [place] children with no increased knee pain LTG Duration 05/16/18 One Impairment Pt does not have an appropriate Home exericse program Short Term Goal (STG) Pt to be independent and consistent performing appropriate HEP. (Goal mostly met). STG Duration 04/15/18 Assessment Summary Assessment Improved R knee AROM 0-132 deg 's without pain, PROM 140 deg' s with end-range pain. Pt had to leave for [employer]; therefore held ES, pt given ice pack to use on drive. Physical Therapy Plan Frequency and Duration Frequency of Treatment 1x/Week Duration of Treatment 12 weeks Plan of Care Start Date 03/16/18 Plan of Care End Date 06/08/18 Next Visit Focus/Plan Next Note Type Re-Evaluation Next Visit Plan Progress note no re-eval for new POC. K-tape, LE - primarily R medial quad strengthening, joint stability for pt to achieve standing squat without pain.
--- NOTE | 2018-06-24 16:42 | PT.OTN ---
Current Diagnoses Unspecified internal derangement of right knee (06/24/18) Physical Therapy Treatment Note PT-OP-A Visit Information Start: 02/26/18 09:27 Freq: Status: Active Protocol: Document 06/24/18 16:00 DCW (Rec: 06/24/18 16:42 DCW [id number]) Out-Patient Physical Therapy Visit Information Visit Information Visit Type Treatment Note Visit Start Time 16:00 Visit Stop Time 16:45 Total Visit Minutes 45 Visit Number 22 Number of COFFEE WEIGHER Visits 0 Evaluation Information Evaluation Date 08/11/17 PT-OP-B Current Condition Start: 02/26/18 09:27 Freq: Status: Active Protocol: Document 03/16/18 15:15 DCW (Rec: 03/17/18 12:37 DCW [id number]) Current Condition History of Current Condition Onset Date one year Current Complaints Knee pain, instability, loss of ROM, weakness History of Current Condition Pt is a 31 year old female presenting with a one year history of right knee pain. Pt was previously treated at this clinic earlier in the year, and was on hold while she had other testing/ procedures performed. last month, she received an injection in her knee, and was told to return to therapy in one month for ROM and strengthening. 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 Pt notes that they initially believed she had a meniscal tear, and plan to do surgery, however after an x-ray revealed substantial degeneration of the joint space, they wanted to attempt injection and therapy prior to surgery. 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 Prior Functional Status Baseline Function- ADL's Independent Baseline Function- Mobility Independent Current Functional Impairments (Reported) Functional Limitations- Work/School Increased stiffness and edema with being on her feet for extended periods at work, but nothing stops me from actually going to work. PT-OP-C Subjective Start: 02/26/18 09:27 Freq: Status: Active Protocol: Document 06/24/18 16:00 DCW (Rec: 06/24/18 16:42 DCW [id number]) OP-PT Subjective Patient Comments Patient Comments Pt notes continued improvement , but still wishes that it was better than it is. PT-OP-F Manual Assessment Start: 02/26/18 09:27 Freq: Status: Active Protocol: Document 06/24/18 16:00 DCW (Rec: 06/24/18 16:20 DCW [id number]) Manual Assessments Soft Tissue Assessment Soft Tissue Mobility Assessment Mild edema around right patella tendon, tenderness 1/4 - Complaint of pain along lateral joint line Joint Mobility Assessment Joint Mobility Assessment Mild laxity with right anterior drawer, significant increased mobility of patella in all directions, moderate crepitus at patellofemoral joint with any knee extension PT-OP-K Range of Motion Start: 02/26/18 09:27 Freq: Status: Active Protocol: Document 06/24/18 16:00 DCW (Rec: 06/24/18 16:20 DCW [id number]) Knee Goniometric Range of Motion Knee Measured in Degrees Right Knee ROM WFL Yes Patient Position Supine Flexion Active (degrees) 135 Extension Active (degrees) 0 Left Knee ROM WFL Yes Patient Position Supine Flexion Active (degrees) 138 Extension Active (degrees) 0 PT-OP-L Special Tests Start: 02/26/18 09:27 Freq: Status: Active Protocol: Document 06/24/18 16:00 DCW (Rec: 06/24/18 16:20 DCW [id number]) Special Tests Knee Special Tests Posterior Draw Test Results Negative Patellar Grind Test Test Results Positive Patella Tap Test Results Positive Murphy Test Test Results Negative Ann Chondromalacia Test Results Patella pain in all positions Apprehension Test Test Results Negative Apley's Compression Test Results Negative Anterior Draw Test Results Mild laxity PT-OP-M Strength Start: 02/26/18 09:27 Freq: Status: Active Protocol: Document 06/24/18 16:00 DCW (Rec: 06/24/18 16:20 DCW [id number]) Knee Strength Knee Manual Muscle Testing Right Flexion (S2) 5 Normal Extension (L3) 4- Good- Comments Pain and crepitus with resisted right extension Left Flexion (S2) 5 Normal Extension (L3) 5 Normal PT-OP-Q Treatments Start: 02/26/18 09:27 Freq: Status: Active Protocol: Document 06/24/18 16:00 DCW (Rec: 06/24/18 16:42 DCW [id number]) Cardio Equipment Recumbent Bicycle Duration (Minutes) 6 Resistance 5 Seat Position 7 Gym Equipment Shuttle Recovery Plyometric Hopping Resistance 37# Reps/Time x60 Unilateral Squats Details Shallow squat Resistance 75# Shuttle Recovery Platform Stable Bilateral Squats Details Adductor ball squeeze, shallow squat Resistance 112# Shuttle Recovery Platform Stable Reps/Time 50 Shuttle Balance Red Details Wide RICKI (Squats), Staggered Stance, Lateral weight shift Manual Therapy Treatment Other Other Manual Treatments ROM, MMT, Palpation testing, Special tests PT-OP-R Modalities Start: 02/26/18 09:27 Freq: Status: Active Protocol: Document 05/21/18 15:15 DCW (Rec: 05/21/18 15:57 DCW [id number]) Electric Stimulation Electric Stimulation Interferential Current (IFC) Body Location Right knee Duration (Minutes) 15 Intensity 12 Patient Position Hooklying Combined With Heat/Cold Cold Pack Hot Pack/Cold Pack Treatment Cold Pack Location R knee Patient Position Supine Treatment Duration (minutes) 15 Patient Tolerance Good Comments Performed with E-Stim PT-OP-T Assessment and Plan Start: 02/26/18 09:27 Freq: Status: Active Protocol: Document 06/24/18 16:00 DCW (Rec: 06/24/18 16:42 DCW [id number]) Physical Therapy Assessment Impairments Impairments Activity Tolerance Functional Activities Functional Mobility Pain ROM Soft Tissue Mobility Strength Goals Four Impairment Weakness Short Term Goal (STG) Right knee extension to 4+/5 STG Duration 07/25/18 Three Impairment ROM Short Term Goal (STG) Right knee flexion to 125? (: Active Flex is 132 deg 's, Passive flexion is 140 deg 's) STG Duration Met Resource Conservation Manager Goal (LTG) Right knee flexion equal to left knee flexion. (06/05/18: Goal met, Pain at end-range PROM). LTG Duration Met Two Impairment Pt unable to run with children on [employer] Resource Conservation Manager Goal (LTG) Pt to run/walk [place] with no increased knee pain LTG Duration 2/19/19 One Impairment Pt does not have an appropriate Home exericse program Short Term Goal (STG) Pt to be independent and consistent performing appropriate HEP. (Goal mostly met). STG Duration Met Assessment Summary Assessment Pt making progress since restarting therapy in March. Pt has had less frequent knee pain, and her instances of pain have been less intense. Pt would likely benefit from continued therapy to continue to improve stability and decrease pain in her affected knee. Physical Therapy Plan Frequency and Duration Frequency of Treatment 1x/Week Duration of Treatment 12 weeks Plan of Care Start Date 06/24/18 Plan of Care End Date 09/16/18 Therapeutic Interventions Therapeutic Interventions Aquatic Therapy Balance Training Home Exercise Program Manual Therapy Neuromuscular Re-education Patient/Caregiver Education Self-Care/Home Management Soft Tissue Mobilization Taping Therapeutic Activities Therapeutic Exercises Modalities Cold Pack/Ice Massage Electric Stimulation Hot Packs Ultrasound Next Visit Focus/Plan Next Note Type Treatment Note Next Visit Plan K-tape, LE - primarily R medial quad strengthening, joint stability for pt to achieve standing squat without pain.
--- NOTE | 2018-06-24 16:42 | PT.OPPOC ---
Current Diagnoses Unspecified internal derangement of right knee (06/24/18) Provider Visit Care Team Role Provider Type Vu Hernández MD Attending Provider Physician Family Provider Primary Care Provider Specialty: Orthopedics Address: [address] [place] [address], [place], [address] Email: [email or web address] Plan Of Care PT-OP-T Assessment and Plan Start: 02/26/18 09:27 Freq: Status: Active Protocol: Document 06/24/18 16:00 DCW (Rec: 06/24/18 16:42 DCW [id number]) Physical Therapy Assessment Impairments Impairments Activity Tolerance Functional Activities Functional Mobility Pain ROM Soft Tissue Mobility Strength Goals Four Impairment Weakness Short Term Goal (STG) Right knee extension to 4+/5 STG Duration 07/25/18 Three Impairment ROM Short Term Goal (STG) Right knee flexion to 125? (: Active Flex is 132 deg 's, Passive flexion is 140 deg 's) STG Duration Met Skimmer Goal (LTG) Right knee flexion equal to left knee flexion. (06/05/18: Goal met, Pain at end-range PROM). LTG Duration Met Two Impairment Pt unable to run with children on [place] [address] Senior Care Goal (LTG) Pt to run/walk [place] [address] [place] with her children with no increased knee pain LTG Duration 08/25/18 One Impairment Pt does not have an appropriate Home exericse program Short Term Goal (STG) Pt to be independent and consistent performing appropriate HEP. (Goal mostly met). STG Duration Met Assessment Summary Assessment Pt making progress since restarting therapy in March. Pt has had less frequent knee pain, and her instances of pain have been less intense. Pt would likely benefit from continued therapy to continue to improve stability and decrease pain in her affected knee. Physical Therapy Plan Frequency and Duration Frequency of Treatment 1x/Week Duration of Treatment 12 weeks Plan of Care Start Date 06/24/18 Plan of Care End Date 09/16/18 Therapeutic Interventions Therapeutic Interventions Aquatic Therapy Balance Training Home Exercise Program Manual Therapy Neuromuscular Re-education Patient/Caregiver Education Self-Care/Home Management Soft Tissue Mobilization Taping Therapeutic Activities Therapeutic Exercises Modalities Cold Pack/Ice Massage Electric Stimulation Hot Packs Ultrasound Next Visit Focus/Plan Next Note Type Treatment Note Next Visit Plan K-tape, LE - primarily R medial quad strengthening, joint stability for pt to achieve standing squat without pain. Plan of Care Dates Plan of Care Start Date 06/24/18 Plan of Care End Date 09/16/18 Please Sign and Return: I have reviewed this Plan of Care and certify that the skilled therapy services above are required to meet the patient?s needs. Physician Signature Date Printed Name and Credentials Clinical Instructor Signature Printed Name and Credentials
--- NOTE | 2018-07-08 16:41 | PT.OTN ---
Current Diagnoses Unspecified internal derangement of right knee (07/08/18) Physical Therapy Treatment Note PT-OP-A Visit Information Start: 02/26/18 09:27 Freq: Status: Active Protocol: Document 07/08/18 16:00 DCW (Rec: 07/08/18 16:40 DCW [id number]) Out-Patient Physical Therapy Visit Information Visit Information Visit Type Treatment Note Visit Start Time 16:00 Visit Stop Time 16:45 Total Visit Minutes 45 Visit Number 23 Number of PROCESSING ANALYST Visits 0 Evaluation Information Evaluation Date 08/11/17 PT-OP-B Current Condition Start: 02/26/18 09:27 Freq: Status: Active Protocol: Document 03/16/18 15:15 DCW (Rec: 03/17/18 12:37 DCW [id number]) Current Condition History of Current Condition Onset Date one year Current Complaints Knee pain, instability, loss of ROM, weakness History of Current Condition Pt is a 31 year old female presenting with a one year history of right knee pain. Pt was previously treated at this clinic earlier in the year, and was on hold while she had other testing/ procedures performed. last month, she received an injection in her knee, and was told to return to therapy in one month for ROM and strengthening. 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 Pt notes that they initially believed she had a meniscal tear, and plan to do surgery, however after an x-ray revealed substantial degeneration of the joint space, they wanted to attempt injection and therapy prior to surgery. 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 Prior Functional Status Baseline Function- ADL's Independent Baseline Function- Mobility Independent Current Functional Impairments (Reported) Functional Limitations- Work/School Increased stiffness and edema with being on her feet for extended periods at work, but nothing stops me from actually going to work. PT-OP-C Subjective Start: 02/26/18 09:27 Freq: Status: Active Protocol: Document 07/08/18 16:00 DCW (Rec: 07/08/18 16:40 DCW [id number]) OP-PT Subjective Patient Comments Patient Comments Pt reports her knee was very sore and swollen over the weekend, but it is feeling better now. Pt does not know what caused change in symptoms , notes that she didn't do anything different. PT-OP-F Manual Assessment Start: 02/26/18 09:27 Freq: Status: Active Protocol: Document 06/24/18 16:00 DCW (Rec: 06/24/18 16:20 DCW [id number]) Manual Assessments Soft Tissue Assessment Soft Tissue Mobility Assessment Mild edema around right patella tendon, tenderness 1/4 - Complaint of pain along lateral joint line Joint Mobility Assessment Joint Mobility Assessment Mild laxity with right anterior drawer, significant increased mobility of patella in all directions, moderate crepitus at patellofemoral joint with any knee extension PT-OP-K Range of Motion Start: 02/26/18 09:27 Freq: Status: Active Protocol: Document 06/24/18 16:00 DCW (Rec: 06/24/18 16:20 DCW [id number]) Knee Goniometric Range of Motion Knee Measured in Degrees Right Knee ROM WFL Yes Patient Position Supine Flexion Active (degrees) 135 Extension Active (degrees) 0 Left Knee ROM WFL Yes Patient Position Supine Flexion Active (degrees) 138 Extension Active (degrees) 0 PT-OP-L Special Tests Start: 02/26/18 09:27 Freq: Status: Active Protocol: Document 06/24/18 16:00 DCW (Rec: 06/24/18 16:20 DCW [id number]) Special Tests Knee Special Tests Posterior Draw Test Results Negative Patellar Grind Test Test Results Positive Patella Tap Test Results Positive Murphy Test Test Results Negative Ann Chondromalacia Test Results Patella pain in all positions Apprehension Test Test Results Negative Apley's Compression Test Results Negative Anterior Draw Test Results Mild laxity PT-OP-M Strength Start: 02/26/18 09:27 Freq: Status: Active Protocol: Document 06/24/18 16:00 DCW (Rec: 06/24/18 16:20 DCW [id number]) Knee Strength Knee Manual Muscle Testing Right Flexion (S2) 5 Normal Extension (L3) 4- Good- Comments Pain and crepitus with resisted right extension Left Flexion (S2) 5 Normal Extension (L3) 5 Normal PT-OP-Q Treatments Start: 02/26/18 09:27 Freq: Status: Active Protocol: Document 07/08/18 16:00 DCW (Rec: 07/08/18 16:40 DCW [id number]) Cardio Equipment Recumbent Bicycle Duration (Minutes) 6 Resistance 5 Seat Position 7 Gym Equipment Shuttle Recovery Plyometric Hopping Resistance 37# Reps/Time x60 Unilateral Squats Details Shallow squat Resistance 75# Shuttle Recovery Platform Stable Bilateral Squats Details Adductor ball squeeze, shallow squat Resistance 112# Shuttle Recovery Platform Stable Reps/Time 50 Shuttle Balance Red Details Wide RICKI (Squats), Staggered Stance, Lateral weight shift Manual Therapy Treatment Joint Mobilizations 2 Joint Patellofemoral joint mobilization Direction Superior<->Inferior Grade III Body Position Supine 1 Joint Tibiofemoral joint mobilization Direction P->A Grade III Body Position Hooklying Taping 2 Body Location R knee Treatment Focus Facilitate Tib/Fib IR on ext and medial glide on Femur Type of Tape Kinesio Tape Skin Inspection Good PT-OP-R Modalities Start: 02/26/18 09:27 Freq: Status: Active Protocol: Document 05/21/18 15:15 DCW (Rec: 05/21/18 15:57 DCW [id number]) Electric Stimulation Electric Stimulation Interferential Current (IFC) Body Location Right knee Duration (Minutes) 15 Intensity 12 Patient Position Hooklying Combined With Heat/Cold Cold Pack Hot Pack/Cold Pack Treatment Cold Pack Location R knee Patient Position Supine Treatment Duration (minutes) 15 Patient Tolerance Good Comments Performed with E-Stim PT-OP-T Assessment and Plan Start: 02/26/18 09:27 Freq: Status: Active Protocol: Document 07/08/18 16:00 DCW (Rec: 07/08/18 16:40 DCW [id number]) Physical Therapy Assessment Impairments Impairments Activity Tolerance Functional Activities Functional Mobility Pain ROM Soft Tissue Mobility Strength Goals Four Impairment Weakness Short Term Goal (STG) Right knee extension to 4+/5 STG Duration 07/25/18 Three Impairment ROM Short Term Goal (STG) Right knee flexion to 125? (: Active Flex is 132 deg 's, Passive flexion is 140 deg 's) STG Duration Met [place] Goal (LTG) Right knee flexion equal to left knee flexion. (06/05/18: Goal met, Pain at end-range PROM). LTG Duration Met Two Impairment Pt unable to run with children [place] [facility] Goal (LTG) Pt to run/walk length of [place] with her children with no increased knee pain LTG Duration 08/25/18 One Impairment Pt does not have an appropriate Home exercise program Short Term Goal (STG) Pt to be independent and consistent performing appropriate HEP. (Goal mostly met). STG Duration Met Assessment Summary Assessment Continue to work toward decreased frequency and severity of knee pain. Physical Therapy Plan Frequency and Duration Frequency of Treatment 1x/Week Duration of Treatment 12 weeks Plan of Care Start Date 06/24/18 Plan of Care End Date 09/16/18 Therapeutic Interventions Therapeutic Interventions Aquatic Therapy Balance Training Home Exercise Program Manual Therapy Neuromuscular Re-education Patient/Caregiver Education Self-Care/Home Management Soft Tissue Mobilization Taping Therapeutic Activities Therapeutic Exercises Modalities Cold Pack/Ice Massage Electric Stimulation Hot Packs Ultrasound Next Visit Focus/Plan Next Note Type Treatment Note Next Visit Plan K-tape, LE - primarily R medial quad strengthening, joint stability for pt to achieve standing squat without pain.
--- NOTE | 2018-10-16 14:02 | PT.OPDS ---
Current Diagnoses Unspecified internal derangement of right knee (07/08/18) Provider Visit Care Team Role Provider Type Vu Hernández MD Attending Provider Physician Family Provider Primary Care Provider Specialty: Orthopedic Surgery Address: [address] [place] [address], [place], [address] Email: [email or web address] Visit Number Visit Number 23 Discharge Summary PT-OP-B Current Condition Start: 02/26/18 09:27 Freq: Status: Active Protocol: Document 03/16/18 15:15 DCW (Rec: 03/17/18 12:37 DCW [id number]) Current Condition History of Current Condition Onset Date one year Current Complaints Knee pain, instability, loss of ROM, weakness History of Current Condition Pt is a 31 year old female presenting with a one year history of right knee pain. Pt was previously treated at this clinic earlier in the year, and was on hold while she had other testing/ procedures performed. last month, she received an injection in her knee, and was told to return to therapy in one month for ROM and strengthening. 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 Pt notes that they initially believed she had a meniscal tear, and plan to do surgery, however after an x-ray revealed substantial degeneration of the joint space, they wanted to attempt injection and therapy prior to surgery. 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 Prior Functional Status Baseline Function- ADL's Independent Baseline Function- Mobility Independent Current Functional Impairments (Reported) Functional Limitations- Work/School Increased stiffness and edema with being on her feet for extended periods at work, but nothing stops me from actually going to work. PT-OP-C Subjective Start: 02/26/18 09:27 Freq: Status: Active Protocol: Document 07/08/18 16:00 DCW (Rec: 07/08/18 16:40 DCW [id number]) OP-PT Subjective Patient Comments Patient Comments Pt reports her knee was very sore and swollen over the weekend, but it is feeling better now. Pt does not know what caused change in symptoms , notes that she didn't do anything different. PT-OP-F Manual Assessment Start: 02/26/18 09:27 Freq: Status: Active Protocol: Document 06/24/18 16:00 DCW (Rec: 06/24/18 16:20 DCW [id number]) Manual Assessments Soft Tissue Assessment Soft Tissue Mobility Assessment Mild edema around right patella tendon, tenderness 1/4 - Complaint of pain along lateral joint line Joint Mobility Assessment Joint Mobility Assessment Mild laxity with right anterior drawer, significant increased mobility of patella in all directions, moderate crepitus at patellofemoral joint with any knee extension PT-OP-K Range of Motion Start: 02/26/18 09:27 Freq: Status: Active Protocol: Document 06/24/18 16:00 DCW (Rec: 06/24/18 16:20 DCW [id number]) Knee Goniometric Range of Motion Knee Measured in Degrees Right Knee ROM WFL Yes Patient Position Supine Flexion Active (degrees) 135 Extension Active (degrees) 0 Left Knee ROM WFL Yes Patient Position Supine Flexion Active (degrees) 138 Extension Active (degrees) 0 PT-OP-L Special Tests Start: 02/26/18 09:27 Freq: Status: Active Protocol: Document 06/24/18 16:00 DCW (Rec: 06/24/18 16:20 DCW [id number]) Special Tests Knee Special Tests Posterior Draw Test Results Negative Patellar Grind Test Test Results Positive Patella Tap Test Results Positive Murphy Test Test Results Negative Ann Chondromalacia Test Results Patella pain in all positions Apprehension Test Test Results Negative Apley's Compression Test Results Negative Anterior Draw Test Results Mild laxity PT-OP-M Strength Start: 02/26/18 09:27 Freq: Status: Active Protocol: Document 06/24/18 16:00 DCW (Rec: 06/24/18 16:20 DCW [id number]) Knee Strength Knee Manual Muscle Testing Right Flexion (S2) 5 Normal Extension (L3) 4- Good- Comments Pain and crepitus with resisted right extension Left Flexion (S2) 5 Normal Extension (L3) 5 Normal PT-OP-T Assessment and Plan Start: 02/26/18 09:27 Freq: Status: Active Protocol: Document 10/16/18 14:00 DCW (Rec: 10/16/18 14:02 DCW [id number]) Physical Therapy Assessment Assessment Summary Assessment Pt has not scheduled any follow-up visits, and has now not been seen in more than three months. Pt will be discharged from skilled therapy at this time, and will require a new referral in order to return. Physical Therapy Plan Discharge Physical Therapy Discharge Reasons No Longer Attending PT Next Visit Focus/Plan Next Note Type Discharge Summary
== END 2018-10-21 11:07 | disposition home or self-care (01) ==
LOC: PHYS 16:00
PROVIDERS: Family Provider Orthopaedic Surgery; PCP Orthopaedic Surgery; Visit Provider Orthopaedic Surgery
DX: M23.91 Unspecified internal derangement of right knee (principal)
CPT/HCPCS: 97010; 97014; 97035; 97110; 97112; 97140; G0283

== ENCOUNTER → 2018-09-15 15:32 | Outpatient (CLI) | payer OTHER, MEDICAID, SELFPAY ==
[2018-09-15 16:08] LABS: Influenza A and B by PCR Rapid Negative (Negative)
== END ==
PROVIDERS: Family Provider Orthopaedic Surgery; PCP Orthopaedic Surgery; Visit Provider Physician Assistant
DX: R68.89 Other general symptoms and signs (principal); J02.9 Acute pharyngitis, unspecified
CPT/HCPCS: 87070; 87077; 87147; 87400

== ENCOUNTER → 2019-07-12 16:03 | Outpatient (CLI) | payer OTHER, MEDICAID, SELFPAY ==
[2019-07-12 16:41] LABS: Influenza A - CEPHEID Flu A NEGATIVE (NEGATIVE); Influenza B - CEPHEID Flu B NEGATIVE (NEGATIVE)
== END ==
PROVIDERS: Family Provider Orthopaedic Surgery; Visit Provider Nurse Practitioner
DX: J02.9 Acute pharyngitis, unspecified (principal)
CPT/HCPCS: 87070; 87502

== ENCOUNTER 2019-09-01 06:05 | Emergency (ER) | payer OTHER, MEDICAID, SELFPAY ==
[2019-09-01 06:05] VITALS: BP 131/85; PULSE 72; RESP 16; TEMP 36.6; O2SAT 100
--- NOTE | 2019-09-01 06:40 | ED.NAVMDI ---
HPI - Nausea/Vomiting/Diarrhea General Chief complaint: Nausea/Vomiting/Diarrhea Stated complaint: Left side back pain, nausea, vomiting Time Seen by Provider: 09/01/19 06:29 Source: patient Mode of arrival: Ambulatory Limitations: no limitations History of Present Illness HPI Narrative: 33-year-old female here for evaluation of several weeks of nausea. He has also had a couple days of left-sided flank pain. No urinary symptoms. No vaginal bleeding. No change in bowel habits. Last menstrual cycle was the beginning of the month. No abdominal pain. Has not tried anything for symptoms prior to arrival Related Data Previous Rx's Medication Instructions Recorded albuterol sulfate 90 mcg/actuation 2 puff INHALATION Q4-6H PRN #8.5 07/12/19 aerosol inhaler gram inhalational spacing device #1 each 07/12/19 Allergies Allergy/AdvReac Type Severity Reaction Status Date / Time No Known Drug Allergies Allergy Verified 07/12/19 15:14 Review of Systems Constitutional Constitutional: Denies fever(s) Cardiovascular Cardiovascular: Denies chest pain and Denies dyspnea Respiratory Respiratory: Denies dyspnea Gastrointestinal Gastrointestinal: Reports abdominal pain, Reports nausea and Reports vomiting Genitourinary Genitourinary: Denies dysuria Musculoskeletal Musculoskeletal: Denies myalgias and Denies arthralgias Integumentary/Breasts Skin/Breast: Denies rash Neurologic Neurologic: Denies confusion Psychiatric Psychiatric: Denies confusion Hematologic/Lymphatic Hematologic/Lymphatic: Denies easy bleeding and Denies easy bruising Allergic/Immunologic Allergic/Immunologic: Denies urticaria Patient History Medical History Knee pain, right (Chronic Unknown) Social History Smoking Status: Never smoker Smoking Status: Never smoker alcohol intake frequency: holidays/special occasions only Substance Use Type: does not use Exam Initial Vital Signs Initial Vital Signs: Vital Signs Temperature 97.9 F 09/01/19 06:05 Pulse Rate 72 09/01/19 06:05 Respiratory Rate 16 09/01/19 06:05 Blood Pressure 131/85 09/01/19 06:05 Pulse Oximetry 100 09/01/19 06:05 Const General: cooperative and comfortable Limitations: mental status not altered HENMT Head: normal to inspection and normocephalic Resp Effort & Inspection: normal respiratory effort Cardio Rate: regular rate GI Inspection: non-distended Palpation: soft Back/Spine/Pelvis Back: CVA tenderness left Skin Lesions: no lesions Rashes: no rashes Neuro General: alert and awake Cognition: normal cognition Speech: speech normal Extrem General: normal to inspection and capillary refill normal Course Orders Ordered: ED Orders 09/01/19 07:00 ABO RH Type Stat HCG Quantitative /Beta subunit Stat Discontinued Medications Sodium Chloride (Normal Saline 0.9%) 1,000 mls @ 1,000 mls/hr IV BOLUS ONE Stop: 09/01/19 07:39 Last Infusion: 09/01/19 07:52 Dose: 0 mls/hr Documented by: Admin: 09/01/19 06:58 Dose: 1,000 mls/hr Documented by: LULÚ Ondansetron HCl (Zofran) 4 mg IV NOW ONE Stop: 09/01/19 06:41 Last Admin: 09/01/19 06:58 Dose: 4 mg Documented by: LULÚ Vital Signs Vital signs: Vital Signs - 8 hr 09/01/19 06:05 Temperature 97.9 F Pulse Rate 72 Respiratory Rate 16 Blood Pressure 131/85 Pulse Oximetry 100 MDM - Nausea/Vomiting/Diarrhea Lab Data Labs: Lab Results 09/01/19 09/01/19 Range/Units 07:00 07:00 HCG, Quant 27580 mIU/mL Blood Type O Positive Point of Care Testing Test Results Positive Urine Dip Bedside Urine Glucose Negative Bedside Urine Bilirubin - Negative Bedside Urine Ketone +/- 5 Urine Specific [place] 1.030 Bedside Urine Occult Blood - Negative Bedside Urine pH 5.5 Bedside Urine Protein +/- 15 Bedside Urine Urobilinogen - Negative Bedside Urine Nitrite - Negative Bedside Urine Leukocytes - Negative Esterase MDM Narrative Medical decision making narrative: Patient did not know that she was . She does not know how far along she is. She is not having any vaginal bleeding. Is having vomiting. Also having left-sided flank pain. HCG quant above discriminatory zone. Ultrasound ordered. Care turned over to Dr. Kong at change of shift to disposition. Discharge Plan Departure Prescriptions: No Action albuterol sulfate 90 mcg/actuation HFA aerosol inhaler 2 puff INHALATION Q4-6H PRN (Reason: shortness of breath or wheezing) Qty: 8.5 RF: 0 (DME) AeroTrach Plus Spacer See Rx Instructions .ROUTE .MEDSULY Qty: 1 RF: 0
[2019-09-01] MEDS: ONDANSETRON 4 MG/2 ML INJ IV (06:58)
[2019-09-01] MEDS: SODIUM CHLORIDE 0.9% 1,000 ML 1000 ML IV (06:58)
[2019-09-01 08:00] LABS: HCG Quantitative /Beta subunit 80336 mIU/mL
--- NOTE | 2019-09-01 08:09 | DI.US.S_ITS ---
PROCEDURE: US OB <= 14 WEEKS FETUS INDICATIONS: PAIN OUTSIDE/PRIOR DATING DATA: Last menstrual period (LMP): Not available. LMP-based estimated date of delivery (MERY): Not available. First dating scan (date and location): This study. Estimated date of delivery (MERY) from first dating scan: 03/21/20, plus or -5 days. TECHNIQUE: Real-time scanning was performed of the fetus and maternal pelvic organs, with image documentation. Endovaginal scanning was also performed to better visualize the fetus and maternal ovaries. COMPARISON: None. FINDINGS: Embryo: [place] rump length 4.3 cm correlates with gestational age 11 weeks 1 day Measurement variability in dating: +/- 4 weeks by LMP, +/- 7 days by mean sac diameter (use before 6 weeks gestation if crown-rump length not able to be measured), +/- 5 days by crown-rump length (up to 8 weeks 6 days gestation), +/- 7 days by crown-rump length (up to 13 weeks 6 days gestation). Maternal organs: Ovaries not seen. Limited images through the kidneys demonstrate no hydronephrosis. IMPRESSION: Single living intrauterine gestation with heart rate 149 beats per minute, with a delivery date projected to be centered on 03/21/20, plus or -5 days. Estimated current gestational age is 11 weeks 1 day. Dictated by: Cornelius Granado M.D. on 09/01/2019 at 9:26 Approved by: Cornelius Granado M.D. on 09/01/2019 at 9:27
[2019-09-01 08:57] LABS: BUN Creatinine Ratio 12.9 (6-22); Blood Urea Nitrogen 9 mg/dL (7-17); Calcium 9.2 mg/dL (8.4-10.2); Carbon Dioxide 20 mmol/L (22-32); Chloride 104 mmol/L (98-107); Estimated Glomerular Filt Rate > 60.0 mL/min (>60); Glucose 99 mg/dL (70-100); HEMOLYSIS < 15 (0-50); Potassium 3.8 mmol/L (3.4-5.1); Sodium 136 mmol/L (137-145)
[2019-09-01] MEDS: ACETAMINOPHEN 325 MG TABLET 650 MG PO (09:03)
[2019-09-01 09:33] LABS: Add Manual Diff / Slide Review NO; Basophils Absolute Auto 0 /uL (0-100); Basophils Percent Auto 0.2 % (0-2); Eosinophils Absolute Auto 100 /uL (0-450); Eosinophils Percent Auto 0.9 % (2-4); Hematocrit 38.6 % (36-46); Hemoglobin 13.1 g/dL (12.0-16.0); Lymphocytes Absolute Auto 3300 /uL (1100-4500); Lymphocytes Percent Auto 30.8 % (25-40); Mean Corpuscular HGB Conc 33.8 % (30-36); Mean Corpuscular Hemoglobin 29.4 PG (26-34); Mean Corpuscular Volume 86.8 fL (80-100); Monocytes Absolute Auto 800 /uL (0-900); Monocytes Percent Auto 7.9 % (3-14); Neutrophils Absolute Auto 6400 /uL (1500-7000); Neutrophils Percent Auto 60.2 % (50-75); Platelet Count 245 X10^3/uL (150-400); Red Blood Cell Count 4.45 X10^6/uL (4.0-5.2); Red Cell Distribution Width 13.9 % (11.6-14.8); White Blood Cell Count 10.7 X10^3/uL (4.5-11.0)
--- NOTE | 2019-09-01 09:33 | ED_ITS ---
HPI - Nausea/Vomiting/Diarrhea General Chief complaint: Nausea/Vomiting/Diarrhea Stated complaint: Left side back pain, nausea, vomiting Time Seen by Provider: 09/01/19 06:29 Source: patient Mode of arrival: Ambulatory Limitations: no limitations History of Present Illness HPI Narrative: Patient care was signed out to myself by Dr. Vaughn she comes in with complaint of left-sided flank pain she is uncomfortable as had nausea for several weeks but denies any belly pain. No urinary symptoms, no dysuria urgency or frequency, no vaginal bleeding or changes in bowel movements. No black or bloody stools. Patient states her last menstrual cycle is beginning of the month. Patient has a positive urine in the department an hCG that is 80,000. Related Data Previous Rx's Medication Instructions Recorded albuterol sulfate 90 mcg/actuation 2 puff INHALATION Q4-6H PRN #8.5 07/12/19 aerosol inhaler gram inhalational spacing device #1 each 07/12/19 Allergies Allergy/AdvReac Type Severity Reaction Status Date / Time No Known Drug Allergies Allergy Verified 07/12/19 15:14 Review of Systems Review of Systems ROS Unobtainable: All systems reviewed & are unremarkable except as noted in HPI and below Neurologic Neurologic: Denies confusion Psychiatric Psychiatric: Denies confusion Patient History Medical History Knee pain, right (Chronic Unknown) Social History Smoking Status: Never smoker Smoking Status: Never smoker alcohol intake frequency: holidays/special occasions only Substance Use Type: does not use Exam Narrative Exam Narrative: GENERAL: Alert and oriented x three, well-nourished female in mild distress. HEENT: Head normocephalic, atraumatic, EOMI, pupils reactive, face symmetric, moist mucous membranes NECK: Supple, full range of motion CARDIOVASCULAR: Regular rate and rhythm without murmurs, rubs or gallops. RESPIRATORY: Breath sounds equal bilaterally, no wheezes rales or rhonchi. ABDOMEN: Soft, nontender. Normoactive bowel sounds all 4 quadrants. No guarding or rebound, rigidity, no mass : Mild left CVA tenderness EXTREMITIES: Normal range of motion, no clubbing or edema. Neurovascularly intact NEUROLOGICAL: Cranial nerves II through XII grossly intact. Moving all extremities SKIN: Warm, dry, no petechiae, no rashes or lesions. Initial Vital Signs Initial Vital Signs: Vital Signs Temperature 97.9 F 09/01/19 06:05 Pulse Rate 72 09/01/19 06:05 Respiratory Rate 16 09/01/19 06:05 Blood Pressure 131/85 09/01/19 06:05 Pulse Oximetry 100 09/01/19 06:05 Course Orders Ordered: Discontinued Medications Acetaminophen (Tylenol) 650 mg PO NOW ONE Stop: 09/01/19 08:59 Last Admin: 09/01/19 09:03 Dose: 650 mg Documented by: GAVI Sodium Chloride (Normal Saline 0.9%) 1,000 mls @ 1,000 mls/hr IV BOLUS ONE Stop: 09/01/19 07:39 Last Infusion: 09/01/19 07:52 Dose: 0 mls/hr Documented by: [email or web address] Admin: 09/01/19 06:58 Dose: 1,000 mls/hr Documented by: LULÚ Ibuprofen (Advil) 800 mg PO NOW ONE Stop: 09/01/19 08:45 Last Admin: 09/01/19 09:08 Dose: Not Given Documented by: GAVI Ondansetron HCl (Zofran) 4 mg IV NOW ONE Stop: 09/01/19 06:41 Last Admin: 09/01/19 06:58 Dose: 4 mg Documented by: LULÚ Vital Signs Vital signs: Vital Signs - 8 hr 09/01/19 06:05 Temperature 97.9 F Pulse Rate 72 Respiratory Rate 16 Blood Pressure 131/85 Pulse Oximetry 100 MDM - Nausea/Vomiting/Diarrhea Lab Data Attestation: I reviewed the patient's lab results. Result diagrams: 09/01/19 09:13 09/01/19 07:00 Labs: Lab Results 09/01/19 09/01/19 09/01/19 Range/Units 07:00 07:00 07:00 WBC (4.5-11.0) X10^3/uL RBC (4.0-5.2) X10^6/uL Hgb (12.0-16.0) g/dL Hct (36-46) % MCV (80-100) fL MCH (26-34) PG MCHC (30-36) % RDW (11.6-14.8) % Plt Count (150-400) X10^3/uL Neut % (Auto) (50-75) % Lymph % (Auto) (25-40) % Wright % (Auto) (3-14) % Eos % (Auto) (2-4) % Baso % (Auto) (0-2) % Neut # (Auto) (2839-9897) /uL Lymph # (Auto) (4988-4131) /uL Wright # (Auto) (0-900) /uL Eos # (Auto) (0-450) /uL Baso # (Auto) (0-100) /uL Sodium 136 L (137-145) mmol/L Potassium 3.8 (3.4-5.1) mmol/L Chloride 104 (98-107) mmol/L Carbon Dioxide 20 L (22-32) mmol/L BUN 9 (7-17) mg/dL Creatinine 0.70 (0.52-1.04) mg/dL Estimated GFR > 60.0 (>60) mL/min BUN/Creatinine Ratio 12.9 (6-22) Glucose 99 (70-100) mg/dL Calcium 9.2 (8.4-10.2) mg/dL HCG, Quant 88835 mIU/mL Blood Type O Positive 09/01/19 Range/Units 09:13 WBC 10.7 (4.5-11.0) X10^3/uL RBC 4.45 (4.0-5.2) X10^6/uL Hgb 13.1 (12.0-16.0) g/dL Hct 38.6 (36-46) % MCV 86.8 (80-100) fL MCH 29.4 (26-34) PG MCHC 33.8 (30-36) % RDW 13.9 (11.6-14.8) % Plt Count 245 (150-400) X10^3/uL Neut % (Auto) 60.2 (50-75) % Lymph % (Auto) 30.8 (25-40) % Wright % (Auto) 7.9 (3-14) % Eos % (Auto) 0.9 L (2-4) % Baso % (Auto) 0.2 (0-2) % Neut # (Auto) 6400 (9079-7481) /uL Lymph # (Auto) 3300 (1817-5727) /uL Wright # (Auto) 800 (0-900) /uL Eos # (Auto) 100 (0-450) /uL Baso # (Auto) 0 (0-100) /uL Sodium (137-145) mmol/L Potassium (3.4-5.1) mmol/L Chloride (98-107) mmol/L Carbon Dioxide (22-32) mmol/L BUN (7-17) mg/dL Creatinine (0.52-1.04) mg/dL Estimated GFR (>60) mL/min BUN/Creatinine Ratio (6-22) Glucose (70-100) mg/dL Calcium (8.4-10.2) mg/dL HCG, Quant mIU/mL Blood Type Point of Care Testing Test Results Positive Urine Dip Bedside Urine Glucose Negative Bedside Urine Bilirubin - Negative Bedside Urine Ketone +/- 5 Urine Specific [place] 1.030 Bedside Urine Occult Blood - Negative Bedside Urine pH 5.5 Bedside Urine Protein +/- 15 Bedside Urine Urobilinogen - Negative Bedside Urine Nitrite - Negative Bedside Urine Leukocytes - Negative Esterase Imaging Data US - OB: Radiologist's Impression: [place] [address] Ultrasound Report Signed Patient: Chichi Escobar TMR#: [id number] : 1985Acct:[id number] Age/Sex: 33 / FDate of Service: 09/01/19 Loc: ED Accession Number: [id number] Procedure: US OB <= 14 weeks fetus Ordering Provider: Karin Kong D.O. PROCEDURE: US OB <= 14 WEEKS FETUS INDICATIONS: PAIN OUTSIDE/PRIOR DATING DATA: Last menstrual period (LMP): Not available. LMP-based estimated date of delivery (MERY): Not available. First dating scan (date and location): This study. Estimated date of delivery (MERY) from first dating scan: 03/21/20, plus or -5 days. TECHNIQUE: Real-time scanning was performed of the fetus and maternal pelvic organs, with image documentation. Endovaginal scanning was also performed to better visualize the fetus and maternal ovaries. COMPARISON: None. FINDINGS: Embryo: [place] rump length 4.3 cm correlates with gestational age 11 weeks 1 day Measurement variability in dating: +/- 4 weeks by LMP, +/- 7 days by mean sac diameter (use before 6 weeks gestation if crown-rump length not able to be measured), +/- 5 days by crown-rump length (up to 8 weeks 6 days gestation), +/- 7 days by crown-rump length (up to 13 weeks 6 days gestation). Maternal organs: Ovaries not seen. Limited images through the kidneys demonstrate no hydronephrosis. IMPRESSION: Single living intrauterine gestation with heart rate 149 beats per minute, with a delivery date projected to be centered on 03/21/20, plus or -5 days. Estimated current gestational age is 11 weeks 1 day. Dictated by: Cornelius Granado M.D. on 09/01/2019 at 9:26 Approved by: Cornelius Granado M.D. on 09/01/2019 at 9:27 MDM Narrative Medical decision making narrative: Patient care signed over to myself. Patient is ultrasound shows intrauterine . Urine does not show any clear signs of infection. CBC and BMP did not show major changes patient has not had any vaginal bleeding. She is to follow up with care and was given referral to Dr. Lugo. Return precautions were discussed and patient feels comfortable with this plan. Discharge Plan Departure Patient Disposition: Home Clinical Impression: Flank pain Qualifiers: Weeks of gestation: 11 weeks Qualified Code(s): Z3A.11 - 11 weeks gestation of Discharge Date/Time: 09/01/19 10:01 Instructions: DI for Abdominal Pain -- Early Activity Restrictions/Additional Instructions: Follow-up with OBGYN for evaluation and care. I would recommend taking a daily vitamin. Ultrasound today shows that is 11 weeks and 1 day by measurements. May continue Tylenol up to a 1000 mg every 8 hours as needed for pain. You may also use heat to the affected area. Return to the ER for fevers greater 100.4 F, persistent vomiting, black or bloody stools, inability to have a bowel movement or urinate, passing out, new vaginal bleeding, vaginal discharge or other new or concerning symptoms. Prescriptions: No Action albuterol sulfate 90 mcg/actuation HFA aerosol inhaler 2 puff INHALATION Q4-6H PRN (Reason: shortness of breath or wheezing) Qty: 8.5 RF: 0 (DME) AeroTrach Plus Spacer See Rx Instructions .ROUTE .MEDSUPPLY Qty: 1 RF: 0 Referrals: Jacqueline Lugo MD [Physician] -
[2019-09-01 10:01] VITALS: BP 132/79; PULSE 75; O2SAT 100
== END 2019-09-01 10:01 | disposition home or self-care (01) ==
PROVIDERS: Emergency Medicine; Emergency Provider Emergency Medicine; Family Provider Orthopaedic Surgery
DX: R10.9 Unspecified abdominal pain (principal); Z32.01 Encounter for pregnancy test, result positive; Z3A.11 11 weeks gestation of pregnancy; R11.2 Nausea with vomiting, unspecified
CPT/HCPCS: 36415; 76801; 76817; 80048; 81003; 81025; 84702; 85025; 86900; 86901; 96361; 96374; 99284; 99285; J2405

== ENCOUNTER 2020-06-13 19:07 | Emergency (ER) | payer OTHER, MEDICAID, SELFPAY ==
--- NOTE | 2020-06-13 19:14 | ED.HA ---
HPI - Headache General Chief Complaint: Upper Respiratory Symptoms Stated Complaint: HEADACHE AND CHILLS Time Seen by Provider: 06/13/20 19:12 Source: patient and family Mode of arrival: Ambulatory Limitations: no limitations History of Present Illness HPI Narrative: 34F nonsmoker with a history of asthma presents with a few days of headache and chills in the absence of fever, runny nose, sore throat or cough. She presents with 4 of her children and the fear of possible COVID. The family was exposed to a known positive person on . Her symptoms started on Friday. She's had no GI symptoms such as N/V/D. She denies any significant shortness of breath. MD Complaint: headache Onset (ago): day(s) Onset description: gradual Location: diffuse Severity: mild Quality: aching and throbbing Relieving factors: nothing Exacerbating factors: none Other symptoms: cough Treatments prior to arrival: none Related Data Previous Rx's Medication Instructions Recorded albuterol sulfate 90 mcg/actuation 2 puff INHALATION Q4-6H PRN #8.5 07/12/19 aerosol inhaler gram inhalational spacing device #1 each 07/12/19 Allergies Allergy/AdvReac Type Severity Reaction Status Date / Time No Known Drug Allergies Allergy Verified 06/13/20 19:42 Review of Systems Constitutional Constitutional: Reports chills, Denies fatigue, Denies fever(s), Denies frequent falls, Denies lethargy and Denies weakness Eyes Eyes: Denies change in vision, Denies eye discharge, Denies irritation and Denies loss of vision ENT Ears, Nose, Mouth, and Throat: Denies change in voice, Denies dizziness, Denies neck pain, Denies sore throat and Denies throat swelling Cardiovascular Cardiovascular: Denies chest pain, Denies irregular heart rhythm, Denies lightheadedness, Denies palpitations, Denies dyspnea, Denies dyspnea on exertion and Denies orthopnea Respiratory Respiratory: Reports cough, Denies dyspnea, Denies dyspnea on exertion and Denies wheezing Gastrointestinal Gastrointestinal: Denies abdominal pain, Denies change in bowel habits, Denies diarrhea, Denies nausea and Denies vomiting Musculoskeletal Musculoskeletal: Denies neck pain and Denies numbness Integumentary/Breasts Skin/Breast: Denies pruritus, Denies erythema, Denies rash and Denies wounds Neurologic Neurologic: Denies behavioral changes, Denies confusion, Denies dizziness, Denies frequent falls, Denies loss of vision, Denies numbness and Denies weakness Psychiatric Psychiatric: Denies anxiety, Denies behavioral changes, Denies confusion, Denies depression, Denies homicidal ideation and Denies suicidal ideation Endocrine Endocrine: Denies fatigue, Denies flushing and Denies palpitations Hematologic/Lymphatic Hematologic/Lymphatic: Denies easy bruising Allergic/Immunologic Allergic/Immunologic: Denies urticaria, Denies throat swelling and Denies wheezing Patient History Medical History (Updated 06/14/20 @ 03:31 by Marco Antonio Montes De Oca DO) Knee pain, right (Unknown) Social History Smoking Status: Never smoker Smoking Status: Never smoker alcohol intake frequency: holidays/special occasions only Substance Use Type: does not use Exam Narrative Exam Narrative: GENERAL: [34] year old patient appears stated age. Well-nourished, well-developed patient, in mild distress. HEAD: Atraumatic. Normocephalic. EYES: Pupils equal round and reactive. Extraocular motions intact. No scleral icterus. No injection or drainage. ENT: Nose without bleeding, purulent drainage. Throat without erythema, tonsillar hypertrophy or exudate. Airway patent. NECK: Trachea midline. Non tender, no meningeal signs CARDIOVASCULAR: Regular rate and rhythm without murmurs, gallops, or rubs. RESPIRATORY: Clear to auscultation. Breath sounds equal bilaterally. No wheezes, rales, or rhonchi. GASTROINTESTINAL: Abdomen soft, non-tender, nondistended. EXTREMITIES: No edema or joint tenderness. BACK: Nontender without deformity or crepitance. No flank tenderness. NEURO: AOx3. SKIN: No rash or erythema of visible areas Initial Vital Signs Initial Vital Signs: Vital Signs Temperature 98.4 F 06/13/20 19:39 Pulse Rate 73 06/13/20 19:39 Respiratory Rate 16 06/13/20 19:39 Blood Pressure 135/93 H 06/13/20 19:39 Pulse Oximetry 99 06/13/20 19:39 Course Orders Ordered: ED Orders 06/13/20 19:30 COVID19 Stat Vital Signs Vital signs: Vital Signs - 8 hr 06/13/20 19:39 Temperature 98.4 F Pulse Rate 73 Respiratory Rate 16 Blood Pressure 135/93 H Pulse Oximetry 99 MDM - Headache Lab Data Labs: Lab Results 06/13/20 Range/Units 19:30 COVID-19 PCR Negative (Negative) Discharge Plan Departure Patient Disposition: Home Clinical Impression: Upper respiratory infection Instructions: Coronavirus Disease 2019 Activity Restrictions/Additional Instructions: *You have been diagnosed with [ Upper respiratory symptoms, but negative COVID-19] *What to do: * per recommendations from the CDC and the [facility] Department of Health * stay home except to get medical care. Restrict activities outside your home, except for getting medical care. Do not go to work, school, or public areas. Avoid using public transportation, ride sharing, or taxis. * separate yourself from other people in your home. * call ahead before visiting your doctor * Wear a facemask * Cover your coughs and sneezes * Clean your hands often * Avoid sharing household items * Clean all high-touch services every day * Monitor your symptoms and seek prompt medical attention if your illness is worsening, particularly with difficulty in breathing. You may discontinue your isolation when: 1. You have been fever-free for at least 24 hours without the use of fever reducing medication, AND 2. Your symptoms are getting better 3. At least 10 days have passed since symptoms first appeared Individuals with laboratory confirmed COVID-19 who have not had any symptoms may discontinue home isolation when at least 10 days have passed since the date of their first COVID-19 diagnostic test and have had no subsequent illness Prescriptions: No Action albuterol sulfate 90 mcg/actuation HFA aerosol inhaler 2 puff INHALATION Q4-6H PRN (Reason: shortness of breath or wheezing) Qty: 8.5 RF: 0 (DME) AeroTrach Plus Spacer See Rx Instructions .ROUTE .MEDSUPPLY Qty: 1 RF: 0
[2020-06-13 19:39] VITALS: BP 135/93; PULSE 73; RESP 16; TEMP 36.9; O2SAT 99
[2020-06-13 20:02] LABS: COVID19 -Nasal RAPID Negative (Negative)
== END 2020-06-13 20:23 | disposition home or self-care (01) ==
PROVIDERS: Emergency Provider Emergency Medicine; Family Provider Orthopaedic Surgery
DX: J02.9 Acute pharyngitis, unspecified (principal); R05 Cough; R51.9 Headache, unspecified
CPT/HCPCS: 87635; 99281; 99282

== ENCOUNTER → 2020-12-08 09:26 | Outpatient (CLI) | payer OTHER, MEDICAID, SELFPAY ==
[2020-12-08 09:51] LABS: COVID19 -Nasal RAPID Negative (Negative)
== END ==
PROVIDERS: Family Provider Orthopaedic Surgery; Visit Provider Physician Assistant
DX: J02.9 Acute pharyngitis, unspecified (principal); R06.02 Shortness of breath; R51.9 Headache, unspecified; Z20.822 Contact with and (suspected) exposure to COVID-19
CPT/HCPCS: 87635